=== PATIENT | male | born 1965 | race Caucasian/White ===

== ENCOUNTER → 2017-04-12 | Outpatient (CLI) | payer OTHER ==
--- NOTE | 2017-04-12 17:30 | XR ---
Left knee HISTORY: Pain, M 25.562 3 views of the left knee Bone mineralization and alignment are maintained. Mild joint space loss medial compartment is suspect ed. No evident effusion. impression: There may be mild osteoarthritis.
== END | disposition home or self-care (01) ==
LOC: RADXRMAIN 11:26
PROVIDERS: ATTEND Family Medicine
DX: M25.562 Pain in left knee (principal)

== ENCOUNTER → 2020-12-02 | Outpatient (CLI) | payer SELFPAY ==
[2020-12-02 12:53] LABS: HGB 10.4 gm/dL (13.0-17.5); Hypochromasia Marked; MCH 21.8 pg (25.0-35.0); MCHC 30.7 g/dL (31.0-37.0); MCV 71.1 fL (80.0-100.0); Microcytosis Moderate; Platelet Count 331 k/uL (150-450); RBC 4.78 m/uL (4.30-5.90); RDW 15.4 % (11.5-15.5); WBC 6.1 k/uL (3.8-10.6)
[2020-12-02 13:19] LABS: African American GFR (CKD) >90 (>60 ml/min/1.73 sqM); Anion Gap 6 mmol/L; Blood Urea Nitrogen 18 mg/dL (9-20); Carbon Dioxide 27 mmol/L (22-30); Chloride 103 mmol/L (98-107); Non-African American GFR(CKD) >90 (>60 ml/min/1.73 sqM); Potassium 4.5 mmol/L (3.5-5.1); Sodium 136 mmol/L (137-145)
== END | disposition home or self-care (01) ==
LOC: LABPAT 12:03
PROVIDERS: ATTEND Internal Medicine Cardiovascular Disease
DX: Z01.812 Encounter for preprocedural laboratory examination (principal); I20.9 Angina pectoris, unspecified
CPT/HCPCS: 36415; 80051; 82565; 84520; 85027

== ENCOUNTER → 2021-02-25 | Outpatient (CLI) | payer BC ==
[2021-02-25 19:04] LABS: HCT 40.7 % (39.6-50.0); HGB 11.8 g/dL (13.0-17.0); MCH 22.9 pg (27.0-32.0); Mean Platelet Volume 9.5 fL (9.5-12.2); Platelet Count 398 X 10*3/uL (140-440); RBC 5.15 X 10*6/uL (4.40-5.60); RDW 17.5 % (11.5-14.5); WBC 7.04 X 10*3/uL (4.50-10.00)
[2021-02-25 21:33] LABS: African American GFR (CKD) 99.1 (60.0-200.0); Albumin 4.3 g/dL (3.8-4.9); Albumin/Globulin Ratio 1.48 (1.60-3.17); BUN/Creat Ratio 17.5 Ratio (12.00-20.00); Blood Urea Nitrogen 17.5 mg/dL (9.0-27.0); Calcium 9.3 mg/dL (8.7-10.3); Globulin 2.9 g/dL (1.6-3.3); Non-African American GFR(CKD) 85.5 (60.0-200.0); Potassium 4.6 mmol/L (3.5-5.5); Total Bilirubin 0.3 mg/dL (0.30-1.20); Total Protein 7.2 g/dL (6.2-8.2)
== END | disposition home or self-care (01) ==
LOC: LABWHC1 12:45
PROVIDERS: ATTEND Surgery Plastic and Reconstructive Surgery
DX: K81.1 Chronic cholecystitis (principal)
CPT/HCPCS: 36415; 80053; 85027

== ENCOUNTER 2021-06-09 07:39 | Day surgery (SDC) | payer BC ==
[2021-06-04 14:06] VITALS: BMI 28.3
--- NOTE | 2021-06-09 07:38 | P.GSHP ---
History of Present Illness H&P Date: 06/09/21 CHIEF COMPLAINT: GERD and colon screen HISTORY OF PRESENT ILLNESS: The patient is a 55-year-old male who presents with gastroesophageal reflux disease and need for colon screen. Upper and lower endoscopy were offered for further evaluation and management. PAST MEDICAL HISTORY: Please see list. PAST SURGICAL HISTORY: Please see list. MEDICATIONS: Please see list. ALLERGIES: Please see list. SOCIAL HISTORY: No illicit drug use FAMILY HISTORY: No reports of Crohn disease or ulcerative colitis. REVIEW OF ORGAN SYSTEMS: CONSTITUTIONAL: No reports of fevers or chills. GI: Denies any blood in stools or constipation. PHYSICAL EXAM: VITAL SIGNS: Stable GENERAL: Well-developed pleasant in no acute distress. HEENT: No scleral icterus. Extraocular movements grossly intact. Moist buccal mucosa. NECK: Supple without lymphadenopathy. CHEST: Unlabored respirations. Equal bilateral excursions. CARDIOVASCULAR: Regular rate and rhythm. Distal 2+ pulses. ABDOMEN: Soft, nondistended. MUSCULOSKELETAL: No clubbing, cyanosis, or edema. ASSESSMENT: 1. Gastroesophageal reflux disease 2. Colon screen. PLAN: 1. Recommend proceeding with an upper and lower endoscopy Past Medical History Past Medical History: Coronary Artery Disease (CAD), Hyperlipidemia, Hypertension, Osteoarthritis (OA), Prostate Disorder Additional Past Medical History / Comment(s): Recent sinus infection, just finished 14 days of Levaquin. Seasonal allergies, CARPAL TUNNEL BILATERAL HANDS, IBS, anemia, sinus allergies/headache. History of Any Multi-Drug Resistant Organisms: None Reported Past Surgical History: Coronary Bypass/CABG, Heart Catheterization Additional Past Surgical History / Comment(s): 09/03/13-CABG X5. Past Anesthesia/Blood Transfusion Reactions: Family History of Problems w/ Anesthesia, Postoperative Nausea & Vomiting (PONV) Additional Past Anesthesia/Blood Transfusion Reaction / Comment(s): Family-PONV. Past Psychological History: No Psychological Hx Reported Smoking Status: Never smoker Past Alcohol Use History: Rare Past Drug Use History: None Reported - Past Family History Father Family Medical History: Cancer Mother Family Medical History: Cancer, CVA/TIA Sister(s) Family Medical History: Cancer Medications and Allergies Home Medications Medication Instructions Recorded Confirmed Type Aspirin EC [Ecotrin Low Dose] 162 mg PO DAILY #60 tablet. 09/06/13 06/04/21 Rx Loratadine-Pseudoeph 5-120 mg 1 tab PO BID PRN 04/01/21 06/04/21 History [Claritin-D 12 Hour] Metoprolol Succinate (ER) [Toprol 50 mg PO QAM 04/01/21 06/04/21 History Xl] Rosuvastatin Calcium [Crestor] 10 mg PO HS 04/01/21 06/04/21 History Ubidecarenone [Co Q-10] 300 mg PO DAILY 04/01/21 06/04/21 History Iron Tab 1 tab PO DAILY PRN 04/26/21 06/04/21 History Drixoral 1 spray NASAL DIRECTED PRN 06/04/21 06/04/21 History Ubidecarenone [Co Q-10] 100 mg PO HS 06/04/21 06/04/21 History Allergies Allergy/AdvReac Type Severity Reaction Status Date / Time niacin Allergy vertigo Verified 06/04/21 13:57 nitroglycerin Allergy passed out Verified 06/04/21 13:57 Penicillins Allergy Unknown Verified 06/04/21 13:57 Childhood erythromycin base AdvReac Nausea & Verified 06/04/21 13:57 [Erythromycin Base] Vomiting & Diarrhea isosorbide mononitrate AdvReac dropped b/p Verified 06/04/21 13:57 [From Imdur]
[~2021-06-09 07:39] MED LIST: LIDOCAINE 1% (10MG/ML) FOR IV START INTRADERMA PRN
[2021-06-09 08:05] VITALS: TEMP 97.3
[2021-06-09] MEDS: LACTATED RINGERS 1,000 ML IV SCH ×2 (08:08→09:40)
[2021-06-09] MEDS ORDERED: ONDANSETRON 4 MG/2 ML VIAL ONE (08:15)
[2021-06-09] MEDS ORDERED: LIDOCAINE 1% INJ 10MG/ML (20 ML MDV) ONE (08:17)
[2021-06-09] MEDS ORDERED: PROPOFOL 10 MG/ML 20 ML VIAL IV ONE (08:17)
--- NOTE | 2021-06-09 08:32 | P.PCN ---
Date of Procedure: 06/09/21 Description of Procedure: PREOPERATIVE DIAGNOSIS: Anemia Epigastric abdominal pain Gastroesophageal reflux disease POSTOPERATIVE DIAGNOSIS: Gastric ulcer, antrum, superficial without bleeding Multiple duodenal ulcers Duodenitis Gastritis OPERATION: Esophagogastroduodenoscopy with biopsies along antrum and duodenum SURGEON: Tiff Roland MD ANESTHESIA: MAC. INDICATIONS: The patient is a 55-year-old male who presents with abdominal pain including anemia. Benefits and risks of the procedure were described. Informed consent was obtained. DESCRIPTION: The patient was brought into the endoscopy suite and laid in the left lateral decubitus position. An Olympus gastroscope was passed along the posterior oropharynx down to the distal esophagus where the squamocolumnar junction was encountered at 42 cm from the incisors. The stomach was entered and no bile reflux was found. Additional findings are listed below. Biopsies with cold forceps were obtained of the antrum. The first through third portion of the duodenum was examined. Retroflexion of the scope confirmed Hill grade 2 lower esophageal valve. The squamocolumnar junction demonstrated LA grade B erosive esophagitis. The stomach was desufflated. The patient tolerated the procedure well. FINDINGS: Squamocolumnar junction 43 cm from the incisors. Diaphragmatic hiatus at 43 cm. Hill grade 2 lower esophageal valve. LA grade A erosive esophagitis. Active duodenitis with multiple punctate superficial duodenal ulcers involving first and second portion of duodenum Chronic gastritis with superficial gastric ulcer RECOMMENDATIONS: 1. Omeprazole 40 mg daily 4 weeks 2. Carafate 1 g twice a day 4 weeks.
[2021-06-09] MEDS ORDERED: IOPAMIDOL CONTRAST (ORAL USE) VIAL PO PRN (09:24)
--- NOTE | 2021-06-09 10:10 | P.PCN ---
Date of Procedure: 06/09/21 Description of Procedure: PREOPERATIVE DIAGNOSIS: Anemia Abdominal pain POSTOPERATIVE DIAGNOSIS: Anemia Large cecal mass Tubular adenoma hepatic flexure Sigmoid diverticulosis Internal and external hemorrhoids grade 3 OPERATION: Colonoscopy to the ileocecal valve and appendiceal orifice, cecum Colonoscopy with injection of Debbie ink, 4 mL Colonoscopy with hot snare polypectomy Colonoscopy with cold forceps biopsy SURGEON: Tiff Roland MD. ANESTHESIA: MAC. INDICATIONS: The patient is an 55-year-old male who presents with abdominal pain including anemia. Lower endoscopy was offered for assessment. Benefits and risks were described and informed consent was obtained. DESCRIPTION OF PROCEDURE: The patient had undergone Sutab prep. The patient had been brought into the operating room and laid in the left lateral decubitus position. After adequate intravenous sedation, the rectum was examined with 2% lidocaine jelly. The prostate was unremarkable. External hemorrhoids were encountered. The rectal tone was within normal limits. No lesions were palpated in the rectal vault. An Olympus colonoscope was advanced until the cecum, ileocecal valve and appendiceal orifice were viewed. The prep was fair. Sigmoid diverticulosis was encountered. Colonic polyps were found and removed. A large 70% circumferential nodular cecal mass was identified involving the ileocecal valve with cold forceps biopsies obtained including injection of Debbie ink 4 mL circumferentially just distal to the tumor. No evidence of focal colitis was found. Retroflexion of the scope demonstrated grade 3 internal hemorrhoids without active bleeding or inflammation. The colon was desufflated. The patient had tolerated the procedure well. Withdrawal time was over 6 minutes. FINDINGS: Aronchick preparation quality scale 3 (1-5) Internal hemorrhoids, grade 3 External hemorrhoids, grade 3. No arteriovenous malformations. Sigmoid diverticulosis Removal of 3 polyps: - Snare polypectomy at hepatic flexure, 6 mm tubulovillous adenoma polyp. - Snare polypectomy and ascending colon, 4 mm flat villous adenoma polyp. - Snare polypectomy 50 cm from the anal verge, 12 mm flat villous adenoma polyp. - Cold forceps biopsy at cecum/ileocecal valve, multiple biopsies of 70% circumferential nodular cecal mass involving the ileocecal valve Injection of Debbie ink 4 mL circumferentially just distal to the cecal tumor. No focal colitis. RECOMMENDATIONS: 1. Immediate CT abdomen and pelvis for cecal tumor/malignancy 2. CBC, CMP and CEA levels for cecal tumor/malignancy 3. Surgical resection advised as entire ileocecal valve cecum involved Plan - Discharge Summary Discharge Rx Participant: Yes New Discharge Prescriptions: New Omeprazole [PriLOSEC] 40 mg PO DAILY #30 cap Sucralfate [Carafate] 1 gm PO BID #60 tablet Continue Aspirin EC [Ecotrin Low Dose] 162 mg PO DAILY #60 tablet. Loratadine-Pseudoeph 5-120 mg [Claritin-D 12 Hour] 1 tab PO BID PRN PRN Reason: Allergy Symptoms Ubidecarenone [Co Q-10] 300 mg PO DAILY Metoprolol Succinate (ER) [Toprol XL] 50 mg PO QAM Rosuvastatin Calcium [Crestor] 10 mg PO HS Iron Tab 1 tab PO DAILY PRN PRN Reason: "When not feeling well." Drixoral 1 spray NASAL DIRECTED PRN PRN Reason: Allergies Ubidecarenone [Co Q-10] 100 mg PO HS Discharge Medication List Aspirin EC [Ecotrin Low Dose] 162 mg PO DAILY #60 tablet. 09/06/13 [Rx] Loratadine-Pseudoeph 5-120 mg [Claritin-D 12 Hour] 1 tab PO BID PRN 04/01/21 [History] Metoprolol Succinate (ER) [Toprol XL] 50 mg PO QAM 04/01/21 [History] Rosuvastatin Calcium [Crestor] 10 mg PO HS 04/01/21 [History] Ubidecarenone [Co Q-10] 300 mg PO DAILY 04/01/21 [History] Iron Tab 1 tab PO DAILY PRN 04/26/21 [History] Drixoral 1 spray NASAL DIRECTED PRN 06/04/21 [History] Ubidecarenone [Co Q-10] 100 mg PO HS 06/04/21 [History] Omeprazole [PriLOSEC] 40 mg PO DAILY #30 cap 06/09/21 [Rx] Sucralfate [Carafate] 1 gm PO BID #60 tablet 06/09/21 [Rx] Follow up Appointment(s)/Referral(s): Tiff Roland MD [STAFF PHYSICIAN] - 06/15/21 Patient Instructions/Handouts: Peptic Ulcer (DC), Gastritis (DC), Diet for Stomach Ulcers and Gastritis (GEN), Iron Rich Diet (ED), Colorectal Polyps (GEN), Duodenitis (DC) Activity/Diet/Wound Care/Special Instructions: AVOID NSAIDS Discharge Disposition: HOME SELF-CARE
[2021-06-09 10:24] LABS: Anisocytosis Slight; Basophils % (A) 0 %; Eosinophils # (A) 0.1 k/uL (0-0.7); Eosinophils % (A) 1 %; HCT 33.5 % (39.0-53.0); Hypochromasia Marked; Lymphocytes # (A) 0.9 k/uL (1.0-4.8); Lymphocytes % (A) 17 %; MCH 21.8 pg (25.0-35.0); MCV 72.7 fL (80.0-100.0); Mean Platelet Volume 6.4; Microcytosis Moderate; Monocytes # (A) 0.4 k/uL (0-1.0); Monocytes % (A) 8 %; Neutrophils # (A) 3.9 k/uL (1.3-7.7); Neutrophils % (A) 72 %; Platelet Count 289 k/uL (150-450); RDW 16.6 % (11.5-15.5); WBC 5.5 k/uL (3.8-10.6)
[2021-06-09 10:36] LABS: ALT 26 U/L (4-49); AST 32 U/L (17-59); African American GFR (CKD) >90 (>60 ml/min/1.73 sqM); Albumin 3.6 g/dL (3.5-5.0); Alkaline Phosphatase 86 U/L (38-126); Anion Gap 11 mmol/L; Blood Urea Nitrogen 20 mg/dL (9-20); Calcium 8.5 mg/dL (8.4-10.2); Carbon Dioxide 25 mmol/L (22-30); Chloride 100 mmol/L (98-107); Glucose 93 mg/dL (74-99); Non-African American GFR(CKD) >90 (>60 ml/min/1.73 sqM); Potassium 3.9 mmol/L (3.5-5.1); Sodium 136 mmol/L (137-145); Total Bilirubin 0.9 mg/dL (0.2-1.3); Total Protein 6.6 g/dL (6.3-8.2)
--- NOTE | 2021-06-09 12:21 | CT ---
EXAMINATION TYPE: CT abdomen pelvis w con DATE OF EXAM: 06/09/2021 COMPARISON: No previous CT scan. Ultrasound dated 04/06/2021 HISTORY: post colonoscopy, possible new ca dx, abdominal pain CT DLP: 946.9 mGycm Automated exposure control for dose reduction was used. TECHNIQUE: Helical acquisition of images was performed from the lung bases through the pelvis. CONTRAST: Performed with Oral Contrast and with IV Contrast, patient injected with 100 mL of Isovue 300. FINDINGS: LUNG BASES: No significant abnormality is appreciated. LIVER/GB: No definite hepatic focal lesion. Cholelithiasis with suspected thick gallbladder sludge. N o signs of acute cholecystitis. PANCREAS: No significant abnormality is seen. SPLEEN: No significant abnormality is seen. ADRENALS: No significant abnormality is seen. KIDNEYS: No significant abnormality is seen. FREE AIR: No free air is visualized. RETROPERITONEAL ADENOPATHY: None visualized REPRODUCTIVE ORGANS: Slightly prominent prostate. Unremarkable seminal vesicles. URINARY BLADDER: No significant abnormality is seen. PELVIC ADENOPATHY: No pathologically enlarged lymph nodes. OSSEOUS STRUCTURES: Sternotomy wire sutures. No aggressive bone lesion. BOWEL: Unremarkable nondistended stomach, duodenum and small bowel. Fatty infiltration of the rectal wall with diffuse mild wall thickening of the colon which could be related to chronic colitis. Circu mferential suspicious focal wall thickening of the ascending colon just superior to the ileocecal jackson ction measuring 3.6 x 5.2 cm, highly suspicious for colon cancer. Adjacent millimetric locoregional l ymph nodes are noted measuring up to 6 mm. No other gross colonic synchronous lesion identified. OTHER: Arterial atherosclerotic calcifications. No sizable ascites. Small fat-containing umbilical he rnia. IMPRESSION: Findings are highly suspicious for an inferior ascending colon cancer with prominent locoregional sub centimeter lymph nodes as described above. Recommend correlation with colonoscopy results and patholo gy results. No other gross synchronous lesion seen in the colon. Signs suggestive of chronic colitis. No obvious metastatic disease seen in the abdomen or the pelvis otherwise. Other incidental findings as describe d above.
[2021-06-09 13:09] VITALS: BP 143/78; PULSE 67; RESP 18
== END 2021-06-09 13:24 | disposition home or self-care (01) ==
LOC: ORWHC2ENDO 07:39
PROVIDERS: ATTEND Surgery Plastic and Reconstructive Surgery
DX: Z12.11 Encounter for screening for malignant neoplasm of colon (principal); K57.30 Diverticulosis of large intestine without perforation or abscess without bleeding; D12.3 Benign neoplasm of transverse colon; K64.4 Residual hemorrhoidal skin tags; K64.2 Third degree hemorrhoids; K29.50 Unspecified chronic gastritis without bleeding; K25.9 Gastric ulcer, unspecified as acute or chronic, without hemorrhage or perforation; K63.3 Ulcer of intestine; K29.80 Duodenitis without bleeding; I25.10 Atherosclerotic heart disease of native coronary artery without angina pectoris; E78.5 Hyperlipidemia, unspecified; I10 Essential (primary) hypertension; M19.90 Unspecified osteoarthritis, unspecified site; F41.9 Anxiety disorder, unspecified; N42.9 Disorder of prostate, unspecified; J30.2 Other seasonal allergic rhinitis; G56.03 Carpal tunnel syndrome, bilateral upper limbs; K58.9 Irritable bowel syndrome, unspecified; Z95.1 Presence of aortocoronary bypass graft; Z80.9 Family history of malignant neoplasm, unspecified; Z82.3 Family history of stroke; Z79.82 Long term (current) use of aspirin; Z79.899 Other long term (current) drug therapy; Z88.1 Allergy status to other antibiotic agents; Z88.0 Allergy status to penicillin; Z91.09 Other allergy status, other than to drugs and biological substances
CPT/HCPCS: 88305; 80053; 82378; 85025; 88342; 74177; 45380; 45385; 43239; 45381; J2405; J2001; J2704; Q9967

== ENCOUNTER 2021-07-16 11:50 | Inpatient (IN) | payer BC ==
[2021-08-17 14:09] VITALS: BMI 28.3
[2021-08-20] MEDS ORDERED: HEPARIN SODIUM,PORCINE/PF 5,000 UNIT/0.5 ML SYRINGE SQ PRN (05:00)
[2021-08-20] MEDS ORDERED: MIDAZOLAM 2 MG/2 ML VIAL IV PRN (06:08)
[2021-08-20] MEDS ORDERED: DEXAMETHASONE SOD PHOSPHATE 4 MG/ML 1 ML VIAL IV ONE (06:08)
[2021-08-20] MEDS ORDERED: SCOPOLAMINE 1 MG/72 HR PATCH TRANSDERM ONE (06:08)
[2021-08-20] MEDS ORDERED: ONDANSETRON 4 MG/2 ML VIAL IVP ONE (06:08)
[2021-08-20] MEDS ORDERED: Antibiotics per Pharmacy 1 EACH MISC MISCELLANE PRN (06:08)
[2021-08-20] MEDS: LACTATED RINGERS 1,000 ML IV SCH (06:36)
[2021-08-20 06:57] LABS: Anisocytosis Slight; Basophils # (A) 0.1 k/uL (0-0.2); Basophils % (A) 1 %; Eosinophils # (A) 0.1 k/uL (0-0.7); Eosinophils % (A) 1 %; HCT 42.8 % (39.0-53.0); HGB 13.1 gm/dL (13.0-17.5); Hypochromasia Slight; Lymphocytes # (A) 1.1 k/uL (1.0-4.8); Lymphocytes % (A) 16 %; MCH 25.2 pg (25.0-35.0); MCHC 30.5 g/dL (31.0-37.0); MCV 82.5 fL (80.0-100.0); Mean Platelet Volume 6.8; Microcytosis Slight; Monocytes # (A) 0.6 k/uL (0-1.0); Monocytes % (A) 9 %; Neutrophils # (A) 5.1 k/uL (1.3-7.7); Neutrophils % (A) 72 %; Platelet Count 296 k/uL (150-450); RBC 5.19 m/uL (4.30-5.90); RDW 17.7 % (11.5-15.5)
[2021-08-20] MEDS ORDERED: HYDROmorphone 0.5 MG/0.5 ML SYRINGE IVP PRN (07:00)
[2021-08-20] MEDS ORDERED: MELOXICAM 7.5 MG TAB PO PRN (07:00)
[2021-08-20] MEDS ORDERED: ACETAMINOPHEN TAB 500 MG TAB PO PRN (07:00)
[2021-08-20] MEDS ORDERED: ALVIMOPAN 12 MG CAPSULE PO PRN (07:00)
[2021-08-20] MEDS ORDERED: METOPROLOL TARTRATE 5 MG/5 ML VIAL IVP ONE ×2 (07:05→07:52)
[2021-08-20 07:09] LABS: ALT 29 U/L (4-49); AST 28 U/L (17-59); African American GFR (CKD) >90 (>60 ml/min/1.73 sqM); Albumin 4.3 g/dL (3.5-5.0); Alkaline Phosphatase 101 U/L (38-126); Anion Gap 12 mmol/L; Blood Urea Nitrogen 14 mg/dL (9-20); Calcium 8.8 mg/dL (8.4-10.2); Carbon Dioxide 28 mmol/L (22-30); Chloride 100 mmol/L (98-107); Glucose 96 mg/dL (74-99); Non-African American GFR(CKD) 88 (>60 ml/min/1.73 sqM); Potassium 3.6 mmol/L (3.5-5.1); Sodium 140 mmol/L (137-145); Total Bilirubin 0.4 mg/dL (0.2-1.3); Total Protein 7.5 g/dL (6.3-8.2)
--- NOTE | 2021-08-20 07:23 | P.GSHP ---
History of Present Illness H&P Date: 08/20/21 CHIEF COMPLAINT: Cecal mass HISTORY OF PRESENT ILLNESS: The patient is a 56-year-old male recently diagnosed with a large cecal mass 3 months ago. He underwent cardiac risk assessment. He underwent colonoscopy. He presents here for resection. PAST MEDICAL HISTORY: Please see list. PAST SURGICAL HISTORY: Please see list. MEDICATIONS: Please see list. ALLERGIES: Please see list. SOCIAL HISTORY: No illicit drug use FAMILY HISTORY: No reports of Crohn disease or ulcerative colitis. REVIEW OF ORGAN SYSTEMS: CONSTITUTIONAL: Denies any fever or chills. HEENT: Denies any trouble with vision or nosebleeds. No difficulty swallowing. LYMPHATIC: The patient denies any lumps and bumps around the neck. ENDOCRINE: Denies any thyroid disorders. Has blood sugar glucose intolerance. RESPIRATORY: Denies pneumonia. Denies any troubles with breathing or dyspnea on exertion. CARDIOVASCULAR: Denies any chest pain, palpitations, or recent heart attacks. GASTROINTESTINAL: History of blood in stools. GENITOURINARY: Has increased urinary frequency. MUSCULOSKELETAL: Has back pain, stiffness, joint arthritis. NEUROLOGIC: Denies any numbness or tingling along the distal extremities. No seizure disorders or headaches. PSYCHIATRIC: Denies depression or suidical ideation. HEMATOLOGIC: Denies any abnormal bleeding or bruising. PHYSICAL EXAM: VITAL SIGNS: Stable GENERAL: Well-developed pleasant in no acute distress. HEENT: No scleral icterus. Extraocular movements grossly intact. Moist buccal mucosa. NECK: Supple without lymphadenopathy. CHEST: Unlabored respirations. Equal bilateral excursions. CARDIOVASCULAR: Regular rate and rhythm. Distal 2+ pulses. ABDOMEN: Soft, nontender, nondistended. MUSCULOSKELETAL: No clubbing, cyanosis, or edema. NERUO: Regular 2-12 grossly intact. PSYCH: Alert and oriented to person place and time. ASSESSMENT: 1. Cecal mass. PLAN: 1. Benefits and risks of surgical intervention right hemicolectomy. Robotic- assisted approach was also described. 2. Enhanced colon recovery program. 3. DVT prophylaxis. 4. Antibiotic prophylaxis. Past Medical History Past Medical History: Coronary Artery Disease (CAD), Cancer, Hyperlipidemia, Hypertension, Osteoarthritis (OA), Prostate Disorder Additional Past Medical History / Comment(s): Seasonal allergies, CARPAL TUNNEL BILATERAL HANDS, IBS, anemia, sinus allergies/headache., COLON CANCER History of Any Multi-Drug Resistant Organisms: None Reported Past Surgical History: Coronary Bypass/CABG, Heart Catheterization Additional Past Surgical History / Comment(s): 09/03/13-CABG X5. COLONSCOPY Past Anesthesia/Blood Transfusion Reactions: Family History of Problems w/ Anesthesia, Postoperative Nausea & Vomiting (PONV) Additional Past Anesthesia/Blood Transfusion Reaction / Comment(s): Family-PONV. Smoking Status: Never smoker - Past Family History Father Family Medical History: Cancer Mother Family Medical History: Cancer, CVA/TIA Sister(s) Family Medical History: Cancer Medications and Allergies Home Medications Medication Instructions Recorded Confirmed Type Aspirin EC [Ecotrin Low Dose] 162 mg PO DAILY #60 tablet. 09/06/13 08/20/21 Rx Loratadine-Pseudoeph 5-120 mg 1 tab PO BID PRN 04/01/21 08/20/21 History [Claritin-D 12 Hour] Metoprolol Succinate (ER) [Toprol 50 mg PO QAM 04/01/21 08/20/21 History XL] Rosuvastatin Calcium [Crestor] 10 mg PO HS 04/01/21 08/20/21 History Ubidecarenone [Co Q-10] 100 mg PO DAILY 06/04/21 08/20/21 History Ubidecarenone [Co Q-10] 200 mg PO DAILY 08/17/21 08/20/21 History Allergies Allergy/AdvReac Type Severity Reaction Status Date / Time niacin Allergy vertigo Verified 08/20/21 06:41 nitroglycerin Allergy passed out Verified 08/20/21 06:41 Penicillins Allergy Unknown Verified 08/20/21 06:41 Childhood erythromycin base AdvReac Nausea & Verified 08/20/21 06:41 [Erythromycin Base] Vomiting & Diarrhea isosorbide mononitrate AdvReac dropped b/p Verified 08/20/21 06:41 [From Imdur] Surgical - Exam Vital Signs Temp Pulse Resp BP Pulse Ox 98.8 F 102 H 18 134/87 100 08/20/21 06:35 08/20/21 06:35 08/20/21 06:35 08/20/21 06:35 08/20/21 06:35 Results - Labs 08/20/21 06:45 08/20/21 06:45 Abnormal Lab Results - Last 24 Hours (Table) 08/20/21 Range/Units 06:45 MCHC 30.5 L (31.0-37.0) g/dL RDW 17.7 H (11.5-15.5) % Diabetes panel 08/20/21 Range/Units 06:45 Sodium 140 (137-145) mmol/L Potassium 3.6 (3.5-5.1) mmol/L Chloride 100 (98-107) mmol/L Carbon Dioxide 28 (22-30) mmol/L BUN 14 (9-20) mg/dL Creatinine 0.98 (0.66-1.25) mg/dL Glucose 96 (74-99) mg/dL Calcium 8.8 (8.4-10.2) mg/dL AST 28 (17-59) U/L ALT 29 (4-49) U/L Alkaline Phosphatase 101 (38-126) U/L Total Protein 7.5 (6.3-8.2) g/dL Albumin 4.3 (3.5-5.0) g/dL Calcium panel 08/20/21 Range/Units 06:45 Calcium 8.8 (8.4-10.2) mg/dL Albumin 4.3 (3.5-5.0) g/dL Pituitary panel 08/20/21 Range/Units 06:45 Sodium 140 (137-145) mmol/L Potassium 3.6 (3.5-5.1) mmol/L Chloride 100 (98-107) mmol/L Carbon Dioxide 28 (22-30) mmol/L BUN 14 (9-20) mg/dL Creatinine 0.98 (0.66-1.25) mg/dL Glucose 96 (74-99) mg/dL Calcium 8.8 (8.4-10.2) mg/dL Adrenal panel 08/20/21 Range/Units 06:45 Sodium 140 (137-145) mmol/L Potassium 3.6 (3.5-5.1) mmol/L Chloride 100 (98-107) mmol/L Carbon Dioxide 28 (22-30) mmol/L BUN 14 (9-20) mg/dL Creatinine 0.98 (0.66-1.25) mg/dL Glucose 96 (74-99) mg/dL Calcium 8.8 (8.4-10.2) mg/dL Total Bilirubin 0.4 (0.2-1.3) mg/dL AST 28 (17-59) U/L ALT 29 (4-49) U/L Alkaline Phosphatase 101 (38-126) U/L Total Protein 7.5 (6.3-8.2) g/dL Albumin 4.3 (3.5-5.0) g/dL
[2021-08-20] MEDS ORDERED: BUPIVACAINE (PF) 0.25% 30 ML VIAL SQ ONE ×2 (07:47→08:31)
[2021-08-20] MEDS ORDERED: ROCURONIUM 10 MG/ML (5 ML VIAL) IV ONE (07:52)
[2021-08-20] MEDS ORDERED: NEOSTIGMINE 1 MG/ML 10 ML VIAL ONE (07:52)
[2021-08-20] MEDS ORDERED: MIDAZOLAM 2 MG/2 ML VIAL ONE (07:52)
[2021-08-20] MEDS ORDERED: fentaNYL (PF) 50 MCG/ML 2 ML AMP ONE (07:52)
[2021-08-20] MEDS ORDERED: LIDOCAINE 2% INJ 20 MG/ML (2 ML VIAL) ONE (07:52)
[2021-08-20] MEDS ORDERED: PROPOFOL 10 MG/ML 20 ML VIAL IV ONE (07:52)
[2021-08-20] MEDS ORDERED: HYDROmorphone (PF) 1 MG/ML ONE (07:52)
[2021-08-20] MEDS ORDERED: KETOROLAC 15 MG/ML 1 ML VIAL ONE (07:52)
[2021-08-20] MEDS ORDERED: GLYCOPYRROLATE 0.2 MG/ML 2 ML VIAL ONE (07:52)
[2021-08-20] MEDS ORDERED: ROPIVACAINE 5 MG/ML 30 ML VIAL ONE (07:52)
[2021-08-20] MEDS ORDERED: DEXAMETHASONE SOD PHOSPHATE 4 MG/ML 1 ML VIAL ONE (07:52)
--- NOTE | 2021-08-20 07:54 | P.ANPRN ---
Procedure Note - Anesthesia - Nerve Block Performed Bilateral Erector Spinae Single Time Out Performed: Yes Date of Procedure: 08/20/21 Procedure Start Time: : Procedure Stop Time: : Location of Patient: PreOp Indication: Acute Post-Operative Pain, Requested by Surgeon Sedation Type: Sedate with meaningful contact maintained Preparation: Sterile Prep, Sterile Dressing Position: Prone Catheter: None Needle Types: Pajunk Needle Gauge: 20 Ultrasound used to visualize needle placement: Yes Ultrasound used to observe medication spread: Yes Injectate: Other (see comment) (Ropivacain 0.25% 30 ml per side + decadron 4 mg per side) Blood Aspirated: No Pain Paresthesia on Injection Noted: No Resistance on Injection: Normal Image Stored and Saved: Yes Events: Uneventful and Well Tolerated
[2021-08-20] MEDS: metroNIDAZOLE-NS PMX 500 MG in SALINE 1 100ML.BAG IVPB PRN ×2 (08:00→08:10)
[2021-08-20] MEDS ORDERED: LACTATED RINGERS 1,000 ML IV ONE ×4 (08:58→13:05)
[2021-08-20] MEDS ORDERED: BENZOCAINE/MENTHOL LOZENG 1 EACH LOZENGE MUCOUS MEM PRN (13:29)
[2021-08-20] MEDS ORDERED: METOCLOPRAMIDE 5 MG/ML 2 ML VIAL IVP PRN (13:29)
--- NOTE | 2021-08-20 13:53 | P.OP ---
Date of Procedure: 08/20/21 Description of Procedure: SURGEON: MARCELINO CALIXTO MD Preoperative Diagnosis: 1. Cecal tumor 2. Coronary artery disease status post CABG 5 3. Hypertensive heart disease 4. Hyperlipidemia 5. Anemia 6. Postoperative nausea and vomiting Postoperative Diagnosis: 1. Ascending colon cancer 2. Coronary artery disease status post CABG 5 3. Hypertensive heart disease 4. Hyperlipidemia 5. Anemia 6. Postoperative nausea and vomiting Procedure(s) Performed: 1. Robot-assisted daVinci Xi laparoscopic extended right hemicolectomy 2. Robot-assisted daVinci Xi laparoscopic partial omentectomy Anesthesia: GETA, local, regional block Estimated Blood Loss (ml): 50 Condition: stable SPECIMENS REMOVED: terminal ileum and extended right colon en bloc, partial omentectomy COMPLICATIONS: None. Disposition: floor Operative Findings: 1. Tattoo identified along the mid ascending colon. 2. More than 6 cm border obtained from tattoo dye for resection 3. No peritoneal metastases identified 4. Extended right hemicolectomy to mid transverse colon 5. Tumor adherent to the retroperitoneum ascending colon INDICATIONS: The patient is a 56-year-old male who presents with cecal adenoma unresectable by colonoscopy. Surgical intervention with colon resection was described in detail. Benefits and risks, including infection, open surgery possibility for additional surgery was discussed at length. Informed consent was obtained. All questions of the patient and family were answered. DESCRIPTION: Earlier the patient had undergone a bowel prep using the enhanced colon recovery program. The patient was transferred to the operating room and placed in supine position. After general anesthetic, a velazquez catheter was placed. The abdomen was then prepped and draped in standard sterile fashion as Ioban was placed along the abdomen to minimize any contamination of skin floor. After a timeout protocol was performed, attention was then brought to the left upper quadrant whereby a 0 degree 5 mm laparoscopic trocar entry was performed. The abdominal cavity was entered and insufflated to 15 mmHg pressure, which was tolerated well. Diagnostic laparoscopy demonstrated no injury to bowel, viscera or mesentery. The liver was remarkable for metastatic disease. Next trochars were placed along the left lateral abdomen. An robotic 8-mm trocar to the left lower abdomen. A 8 mm port was placed along the left lower quadrant. Another 12-mm port along the left upper quadrant. Ports were placed 8 cm apart from each other including 15-20 cm away from the target anatomy of the right pelvis. The 5-mm port was exchanged for a 12 mm robotic port. The patient was then placed in right side up 7 and reverse Trendelenburg in 7. The robotic da Dawson XI system was primed and docked from the right side of the patient. Using atraumatic graspers and vessel sealer, the robotic system was docked and primed as described. Instruments were interchanged by the promotional advertising assistant including scissors, needle set key driver, robotic stapler and vessel sealer. Next, attention was brought to identify the cecum. A stay suture using 0 silk was placed along the anterior serosa of the along the terminal ileum. The terminal ileum and ascending colon mesentery was mobilized using a vessel sealer whereby the colon was marked and tagged. Tattoo was identified along the mid ascending colon. The colon was prepared for resection along the mid transverse colon including for resection along the terminal ileum. Using robot stapler 60 mm white load, the distal ileum was divided 8 centimeters proximal to the ileocecal valve. The mesentery of the ascending colon was mobilized towards the midline using a vessel sealer. Dense adherence and redundancy of the ascending colon to the retroperitoneum was identified requiring extensive dissection. The right colon was mobilized to the mid transverse colon and prepared for resection. Redundant omentum was resected using vessel sealer at the mid transverse colon proximally to the hepatic flexure for partial omentectomy. The colon was divided using 60 mm blue loads. The rest of the colon mesentery was mobilized using vessel sealer including using blunt dissection. The ascending colon was mobilized from proximal to distal with the meeting point of the hepatic flexure. The vascular pedicle of the ileocolic artery was controlled using vessel sealer. The mid transverse colon and distal ileum was brought in a side to side antiperistaltic anastomotic fashion after placing interrupted sutures along the proposed zoë-lumen using 3-0 silk. A colotomy and enterotomy was prepared along both limbs along the antimesenteric border. Next, 60 mm blue stapler loads were fired to create the zoë-lumen. The zoë-lumen was reapproximated using 3-0 silk followed by 60 mm blue load for closure of the enterostomy. All needles were removed from the abdominal cavity. The robot was undocked. I re-scrubbed into the case. Via the 12 mm port of the left upper quadrant, the right colon was removed after widening the skin incision to 5-cm using 15-mm Endo Catch bag and small Christiano wound protector. All sponges were removed from the abdominal cavity. The fascial defect was oversewn using 0 Vicryl and Gil Leos. Next all pneumoperitoneum was evacuated from the abdominal cavity. The 8-mm trocar sites were reapproximated using 4-0 Monocryl in an interrupted subcuticular fashion. Local anesthetic was infiltrated to all wounds for postop analgesia. All incisions were also cleansed with diluted hydrogen peroxide. Liquid glue was applied to the rest of the skin incisions. The patient had tolerated the procedure well. The patient was extubated successfully. Intraoperative photos were reviewed with the patient's family who were overall pleased with the level of care. The patient was transferred to the postanesthesia care unit in stable condition.
[2021-08-20 14:39] LABS: Glucose,Whole Blood 119 mg/dL (75-99)
[2021-08-20] MEDS ORDERED: KETOROLAC 15 MG/ML 1 ML VIAL IVP ONE (16:19)
[2021-08-20] MEDS: 0.9% NACL WITH KCL 20 MEQ/L 1,000 ML IV SCH (16:38)
[2021-08-20] MEDS: ALVIMOPAN 12 MG CAPSULE PO SCH (20:45)
[2021-08-20] MEDS: HEPARIN SODIUM,PORCINE/PF 5,000 UNIT/0.5 ML SYRINGE SQ SCH (20:45)
[2021-08-20] MEDS: HYDROmorphone 1 MG/ML 1 ML SYRINGE IVP PRN (21:34)
[2021-08-20] MEDS: LORATADINE-PSEUDOEPH 5-120 MG 1 EACH TAB.ER.12H PO PRN (21:35)
[2021-08-21] MEDS: 0.9% NACL WITH KCL 20 MEQ/L 1,000 ML IV SCH ×4 (00:10→22:31)
[2021-08-21] MEDS: HYDROmorphone 1 MG/ML 1 ML SYRINGE IVP PRN ×3 (04:52→11:17)
[2021-08-21] MEDS: LACTATED RINGERS 1,000 ML IV SCH (07:27)
[2021-08-21] MEDS: ALVIMOPAN 12 MG CAPSULE PO SCH ×2 (08:09→20:39)
[2021-08-21] MEDS: LORATADINE-PSEUDOEPH 5-120 MG 1 EACH TAB.ER.12H PO PRN ×2 (08:09→20:39)
[2021-08-21] MEDS: METOPROLOL SUCCINATE (ER) 50 MG TAB.ER.24H PO SCH (08:09)
[2021-08-21] MEDS: HEPARIN SODIUM,PORCINE/PF 5,000 UNIT/0.5 ML SYRINGE SQ SCH ×2 (08:10→20:39)
[2021-08-21 08:42] LABS: Basophils # (A) 0.01 X 10*3/uL (0.00-0.10); Basophils % (A) 0.1 %; Eosinophils # (A) 0 X 10*3/uL (0.04-0.35); Eosinophils % (A) 0 %; HCT 35.9 % (39.6-50.0); HGB 10.6 g/dL (13.0-17.0); Immature Grans, Automated 0.4 %; Lymphocytes # (A) 1.12 X 10*3/uL (0.90-5.00); Lymphocytes % (A) 10.9 %; MCH 24.7 pg (27.0-32.0); MCHC 29.5 g/dL (32.0-37.0); MCV 83.5 fL (80.0-97.0); Mean Platelet Volume 9.6 fL (9.5-12.2); Monocytes # (A) 0.89 X 10*3/uL (0.20-1.00); Monocytes % (A) 8.7 %; NRBC Per 100 WBC 0 /100 WBCS (0.0-0.0); Neutrophils # (A) 8.17 X 10*3/uL (1.80-7.70); Neutrophils % (A) 79.9 %; Platelet Count 265 X 10*3/uL (140-440); RDW 18.6 % (11.5-14.5); WBC 10.23 X 10*3/uL (4.50-10.00)
[2021-08-21 08:54] LABS: African American GFR (CKD) 98.5 (60.0-200.0); Anion Gap 8.4 mmol/L (10.00-18.00); Calcium 8.1 mg/dL (8.7-10.3); Carbon Dioxide 23.6 mmol/L (20.0-27.5); Non-African American GFR(CKD) 84.9 (60.0-200.0); Potassium 4.4 mmol/L (3.5-5.5)
--- NOTE | 2021-08-21 11:01 | P.PN ---
Subjective Progress Note Date: 08/21/21 Principal diagnosis: Right colectomy 56-year-old male doing well after laparoscopic right colectomy yesterday. He has been ambulating in the hallways. He was nauseous yesterday but that has resolved. No flatus or bowel movement yet. He is afebrile with a T-max of 99.1. Hemoglobin 10.6 today. Objective - Vital Signs Vital signs: Vital Signs Temp 99.1 F 08/21/21 08:14 Pulse 89 08/21/21 08:14 Resp 16 08/21/21 08:14 BP 121/57 08/21/21 08:14 Pulse Ox 91 L 08/21/21 08:14 FiO2 Intake & Output 08/20/21 08/21/21 08/21/21 18:59 06:59 18:59 Intake Total 4500 Output Total 400 600 Balance 4100 -600 Weight 88.9 kg Intake: IV 4500 Output: Urine 350 600 Estimated Blood Loss 50 Other: Voiding Method Indwelling Catheter Indwelling Catheter # Bowel Movements 0 - Exam Abdomen: Soft, mild distention, mild tenderness at incision sites, incisions clean and dry - Labs CBC & Chem 7: 08/21/21 05:23 08/21/21 05:23 Labs: Abnormal Lab Results - Last 24 Hours (Table) 08/20/21 08/21/21 08/21/21 Range/Units 14:38 05:23 05:23 WBC 10.23 H (4.50-10.00) X 10*3/uL RBC 4.30 L (4.40-5.60) X 10*6/uL Hgb 10.6 L (13.0-17.0) g/dL Hct 35.9 L (39.6-50.0) % MCH 24.7 L (27.0-32.0) pg MCHC 29.5 L (32.0-37.0) g/dL RDW 18.6 H (11.5-14.5) % Neutrophils # 8.17 H (1.80-7.70) X 10*3/uL Eosinophils # 0 L (0.04-0.35) X 10*3/uL Anion Gap 8.40 L (10.00-18.00) mmol/L POC Glucose (mg/dL) 119 H (75-99) mg/dL Calcium 8.1 L (8.7-10.3) mg/dL Assessment and Plan (1) Adenoma of cecum Narrative/Plan: 56-year-old male doing fairly well after recent laparoscopic right colectomy yesterday. Continue clear liquids for today but will advance to full liquids tomorrow. Recheck CBC tomorrow. Ambulate. Current Visit: Yes Status: Acute Code(s): D12.0 - BENIGN NEOPLASM OF CECUM SNOMED Code(s): 92007631
[2021-08-21] MEDS ORDERED: ACETAMINOPHEN TAB 325 MG TAB PO PRN (14:28)
[2021-08-21] MEDS: HYDROcodone/APAP 7.5-325MG 1 EACH TAB PO PRN ×2 (14:39→20:45)
[2021-08-21] MEDS: KETOROLAC 15 MG/ML 1 ML VIAL IVP SCH ×2 (14:39→18:06)
[2021-08-22] MEDS: KETOROLAC 15 MG/ML 1 ML VIAL IVP SCH ×5 (01:29→23:10)
[2021-08-22] MEDS: 0.9% NACL WITH KCL 20 MEQ/L 1,000 ML IV SCH ×2 (05:44→17:02)
[2021-08-22] MEDS: ONDANSETRON 4 MG/2 ML VIAL IVP PRN ×2 (05:44→17:01)
[2021-08-22] MEDS: LACTATED RINGERS 1,000 ML IV SCH (06:18)
[2021-08-22] MEDS: ALVIMOPAN 12 MG CAPSULE PO SCH (07:43)
[2021-08-22] MEDS: HEPARIN SODIUM,PORCINE/PF 5,000 UNIT/0.5 ML SYRINGE SQ SCH ×2 (09:22→21:38)
[2021-08-22] MEDS: METOPROLOL SUCCINATE (ER) 50 MG TAB.ER.24H PO SCH (09:25)
[2021-08-22] MEDS: HYDROcodone/APAP 7.5-325MG 1 EACH TAB PO PRN ×2 (09:25→17:02)
[2021-08-22 11:36] LABS: Basophils # (A) 0.01 X 10*3/uL (0.00-0.10); Basophils % (A) 0.1 %; Eosinophils # (A) 0.02 X 10*3/uL (0.04-0.35); Eosinophils % (A) 0.3 %; HGB 10.9 g/dL (13.0-17.0); Immature Grans, Automated 0.3 %; Lymphocytes # (A) 0.69 X 10*3/uL (0.90-5.00); Lymphocytes % (A) 8.7 %; MCHC 30.3 g/dL (32.0-37.0); MCV 82.6 fL (80.0-97.0); Mean Platelet Volume 9.3 fL (9.5-12.2); Monocytes # (A) 0.74 X 10*3/uL (0.20-1.00); Monocytes % (A) 9.3 %; NRBC Per 100 WBC 0 /100 WBCS (0.0-0.0); Neutrophils # (A) 6.48 X 10*3/uL (1.80-7.70); Neutrophils % (A) 81.3 %; Platelet Count 234 X 10*3/uL (140-440); RBC 4.36 X 10*6/uL (4.40-5.60); RDW 18.1 % (11.5-14.5); WBC 7.96 X 10*3/uL (4.50-10.00)
--- NOTE | 2021-08-22 11:38 | P.PN ---
Subjective Progress Note Date: 08/22/21 Principal diagnosis: Right colectomy Patient doing well today. He did have loose stools this morning. Pain is improved. He did have complaints of swelling in his uvula. No fevers. Tolerating diet thus far. Hemoglobin stable, white blood cell count normal. Objective - Vital Signs Vital signs: Vital Signs Temp 97.7 F 08/22/21 07:37 Pulse 66 08/22/21 07:37 Resp 18 08/22/21 07:37 BP 141/68 08/22/21 07:37 Pulse Ox 96 08/22/21 07:37 FiO2 Intake & Output 08/21/21 08/22/21 08/22/21 18:59 06:59 18:59 Intake Total 540 Output Total 1800 3100 Balance -1800 -2560 Intake: Oral 540 Output: Urine 1800 3100 Other: Voiding Method Indwelling Catheter Indwelling Catheter Indwelling Catheter # Voids 1 - Exam Abdomen: Soft, mild tenderness at incision sites, nondistended - Labs CBC & Chem 7: 08/22/21 07:32 08/21/21 05:23 Labs: Abnormal Lab Results - Last 24 Hours (Table) 08/22/21 Range/Units 07:32 RBC 4.36 L (4.40-5.60) X 10*6/uL Hgb 10.9 L (13.0-17.0) g/dL Hct 36.0 L (39.6-50.0) % MCH 25.0 L (27.0-32.0) pg MCHC 30.3 L (32.0-37.0) g/dL RDW 18.1 H (11.5-14.5) % MPV 9.3 L (9.5-12.2) fL Lymphocytes # 0.69 L (0.90-5.00) X 10*3/uL Eosinophils # 0.02 L (0.04-0.35) X 10*3/uL Assessment and Plan (1) Adenoma of cecum Narrative/Plan: Patient doing well at this time. Continue advancing diet as tolerated. Ambulate. May shower today. Decrease IV fluid rate. Anticipate discharge tomorrow. Current Visit: Yes Status: Acute Code(s): D12.0 - BENIGN NEOPLASM OF CECUM SNOMED Code(s): 89233141
[2021-08-22] MEDS: LORATADINE-PSEUDOEPH 5-120 MG 1 EACH TAB.ER.12H PO PRN (22:16)
[2021-08-23 03:20] VITALS: RESP 18
[2021-08-23] MEDS: KETOROLAC 15 MG/ML 1 ML VIAL IVP SCH (05:36)
[2021-08-23] MEDS: ONDANSETRON 4 MG/2 ML VIAL IVP PRN (05:37)
[2021-08-23] MEDS: LACTATED RINGERS 1,000 ML IV SCH (06:12)
[2021-08-23] MEDS: HEPARIN SODIUM,PORCINE/PF 5,000 UNIT/0.5 ML SYRINGE SQ SCH ×2 (07:33→07:35)
[2021-08-23] MEDS: METOPROLOL SUCCINATE (ER) 50 MG TAB.ER.24H PO SCH (07:34)
[2021-08-23 07:42] LABS: Glucose,Whole Blood 78 mg/dL (75-99)
[2021-08-23] MEDS: HYDROcodone/APAP 7.5-325MG 1 EACH TAB PO PRN ×2 (09:05→14:08)
--- NOTE | 2021-08-23 13:54 | P.DS ---
Providers Date of admission: 08/20/21 06:13 Expected date of discharge: 08/23/21 Attending physician: Tiff Roland Primary care physician: Far[facility] Course: Discharge diagnosis 1. Ascending colon tumor status post extended right hemicolectomy and partial omentectomy Hospital course This is a 56-year-old male who was diagnosed with a large cecal mass 3 months ago on colonoscopy. Patient is status post extended right hemicolectomy and partial omentectomy. Patient is tolerating diet. He is having bowel movements. His pain is controlled. He is afebrile. He is up and ambulating. He is stable for discharge. Physician Edge Trimmer note has been reviewed by physician. Signing provider agrees with the documented findings, assessment, and plan of care. Postoperative Diagnosis: 1. Ascending colon cancer 2. Coronary artery disease status post CABG 5 3. Hypertensive heart disease 4. Hyperlipidemia 5. Anemia 6. Postoperative nausea and vomiting As above. Patient was started on a low fiber diet. Reports tolerating diet having bowel movements and passing flatus. Discharge instructions: Colectomy diet low fiber diet reviewed. All questions were addressed. Patient was stable for discharge. Procedures: Procedure(s) Performed: 1. Robot-assisted daVinci Xi laparoscopic extended right hemicolectomy 2. Robot-assisted daVinci Xi laparoscopic partial omentectomy Anesthesia: GETA, local, regional block Estimated Blood Loss (ml): 50 Condition: stable SPECIMENS REMOVED: terminal ileum and extended right colon en bloc, partial omentectomy COMPLICATIONS: None. Disposition: floor Operative Findings: 1. Tattoo identified along the mid ascending colon. 2. More than 6 cm border obtained from tattoo dye for resection 3. No peritoneal metastases identified 4. Extended right hemicolectomy to mid transverse colon 5. Tumor adherent to the retroperitoneum ascending colon Patient Condition at Discharge: Stable Plan - Discharge Summary Discharge Rx Participant: Yes New Discharge Prescriptions: New Simethicone [Gas-X] 125 mg PO AC-TID PRN #20 capsule PRN Reason: Pain Ibuprofen [Motrin] 600 mg PO Q8HR PRN #30 tab PRN Reason: Pain Simethicone [Gas-X] 125 mg PO AC-TID PRN #30 capsule PRN Reason: Pain Omeprazole [PriLOSEC] 40 mg PO DAILY #14 cap Acetaminophen Tab [Tylenol Tab] 1,000 mg PO Q6HR PRN #30 tablet PRN Reason: Pain Ondansetron Odt [Zofran ODT] 4 mg PO Q8HR PRN #20 tab PRN Reason: Nausea And Vomiting Continue Aspirin EC [Ecotrin Low Dose] 162 mg PO DAILY #60 tablet. Loratadine-Pseudoeph 5-120 mg [Claritin-D 12 Hour] 1 tab PO BID PRN PRN Reason: Allergy Symptoms Metoprolol Succinate (ER) [Toprol XL] 50 mg PO QAM Rosuvastatin Calcium [Crestor] 10 mg PO HS Ubidecarenone [Co Q-10] 100 mg PO DAILY Ubidecarenone [Co Q-10] 200 mg PO DAILY Discharge Medication List Aspirin EC [Ecotrin Low Dose] 162 mg PO DAILY #60 tablet. 09/06/13 [Rx] Loratadine-Pseudoeph 5-120 mg [Claritin-D 12 Hour] 1 tab PO BID PRN 04/01/21 [History] Metoprolol Succinate (ER) [Toprol XL] 50 mg PO QAM 04/01/21 [History] Rosuvastatin Calcium [Crestor] 10 mg PO HS 04/01/21 [History] Ubidecarenone [Co Q-10] 100 mg PO DAILY 06/04/21 [History] Ubidecarenone [Co Q-10] 200 mg PO DAILY 08/17/21 [History] Acetaminophen Tab [Tylenol Tab] 1,000 mg PO Q6HR PRN #30 tablet 08/23/21 [Rx] Ibuprofen [Motrin] 600 mg PO Q8HR PRN #30 tab 08/23/21 [Rx] Simethicone [Gas-X] 125 mg PO AC-TID PRN #20 capsule 08/23/21 [Rx] Omeprazole [PriLOSEC] 40 mg PO DAILY #14 cap 08/24/21 [Rx] Ondansetron Odt [Zofran ODT] 4 mg PO Q8HR PRN #20 tab 08/24/21 [Rx] Simethicone [Gas-X] 125 mg PO AC-TID PRN #30 capsule 08/24/21 [Rx] Follow up Appointment(s)/Referral(s): Tiff Roland MD [STAFF PHYSICIAN] - 08/31/21 (Telehealth. Please call the office to verify time) Patient Instructions/Handouts: Colectomy Diet (DC), Laparoscopic Bowel Resection (GEN), Colectomy (DC) Activity/Diet/Wound Care/Special Instructions: Wear abdominal binder at all times for comfort. Please notify your pain specialist for narcotic pain meds. No lifting over 4 pounds in 4 weeks until September 19. July shower. No bath tub soaks for two weeks until September 03 Avoid steak, tough meats and seeds such as raspberry seeds. No driving while on narcotics. Use Tylenol and ibuprofen scheduled for the next 24-48 hours for best pain relief. Use ice along incisions for today to prevent swelling. Discharge Disposition: HOME SELF-CARE
[2021-08-23 14:15] VITALS: BP 139/86; PULSE 86; TEMP 98.7
--- NOTE | 2021-08-26 12:58 | P.PN ---
Progress Note - Text Progress Note Date: 08/26/21 Called patient. He reports abdominal gas bloat, persistent. Recommend return to the ER for additional diagnostic studies.
== END 2021-08-23 15:12 | disposition home or self-care (01) | DRG 331 ==
LOC: 2ORMAIN 08-20 06:13 → 4SSUR 08-20 13:29
PROVIDERS: ADMIT Surgery Plastic and Reconstructive Surgery; ATTEND Surgery Plastic and Reconstructive Surgery
PROC: 0DBU0ZZ Excision of Omentum, Open Approach (ICD-10-PCS; 2021-08-20)
PROC: 8E0W0CZ Robotic Assisted Procedure of Trunk Region, Open Approach (ICD-10-PCS; 2021-08-20)
PROC: 0DTF0ZZ Resection of Right Large Intestine, Open Approach (ICD-10-PCS; principal; 2021-08-20 07:30)
DX: D12.0 Benign neoplasm of cecum (principal); D64.9 Anemia, unspecified; I10 Essential (primary) hypertension; I25.10 Atherosclerotic heart disease of native coronary artery without angina pectoris; E78.5 Hyperlipidemia, unspecified; K58.9 Irritable bowel syndrome, unspecified; J30.2 Other seasonal allergic rhinitis; M19.90 Unspecified osteoarthritis, unspecified site; R11.2 Nausea with vomiting, unspecified; Z79.82 Long term (current) use of aspirin; Z82.3 Family history of stroke; Z85.038 Personal history of other malignant neoplasm of large intestine; Z95.1 Presence of aortocoronary bypass graft; Z88.8 Allergy status to other drugs, medicaments and biological substances; Z88.0 Allergy status to penicillin; Z88.1 Allergy status to other antibiotic agents; Z79.899 Other long term (current) drug therapy
CPT/HCPCS: 64999; 80048; 80053; 85025; 86850; 86900; 86901; 88309

== ENCOUNTER → 2021-08-13 | Outpatient (CLI) | payer BC ==
[2021-08-13 13:56] LABS: Anisocytosis Slight; HCT 43.6 % (39.0-53.0); Hypochromasia Moderate; MCH 25.4 pg (25.0-35.0); MCHC 30.3 g/dL (31.0-37.0); Mean Platelet Volume 6.8; Microcytosis Slight; Platelet Count 338 k/uL (150-450); RDW 18.8 % (11.5-15.5); WBC 6.5 k/uL (3.8-10.6)
[2021-08-13 14:06] LABS: HGB 13.2 gm/dL (13.0-17.5); MCV 83.9 fL (80.0-100.0)
[2021-08-13 19:16] LABS: African American GFR (CKD) 99.1 (60.0-200.0); Albumin 4.3 g/dL (3.8-4.9); Albumin/Globulin Ratio 1.43 (1.60-3.17); Anion Gap 9.4 mmol/L (10.00-18.00); BUN/Creat Ratio 16.6 Ratio (12.00-20.00); Blood Urea Nitrogen 16.6 mg/dL (9.0-27.0); Calcium 9.4 mg/dL (8.7-10.3); Carbon Dioxide 27.6 mmol/L (20.0-27.5); Non-African American GFR(CKD) 85.5 (60.0-200.0); Potassium 4.2 mmol/L (3.5-5.5); Total Bilirubin 0.2 mg/dL (0.30-1.20); Total Protein 7.3 g/dL (6.2-8.2)
== END | disposition home or self-care (01) ==
LOC: LABPAT 13:17
PROVIDERS: ATTEND Surgery Plastic and Reconstructive Surgery
DX: Z01.810 Encounter for preprocedural cardiovascular examination (principal)
CPT/HCPCS: 80053; 85027

== ENCOUNTER 2021-08-26 13:53 | Inpatient (IN) | payer BC ==
--- NOTE | 2021-08-26 15:45 | ED ---
Abdominal Pain HPI - General Chief Complaint: Abdominal Pain Stated Complaint: Procedure done 08/20 Complications Time Seen by Provider: 08/26/21 15:40 Source: patient Mode of arrival: ambulatory Limitations: no limitations - History of Present Illness Initial Comments: 56-year-old male with recently diagnosed colon cancer presents emergency Department with abdominal pain. Patient was hospitalized on August 20 and had removal of a cecal tumor. He had an extended right hemicolectomy and laparoscopic partial omentectomy. He has not been taking any pain medications at home as his pain has been well managed. He is on a clear diet. States that yesterday he began having significant abdominal bloating which is new and different for him. He attempted to pass gas however was unsuccessful. States he has been having loose bowel movements. Patient has no issues with urination. Yesterday his temp was 99.1 however has not had any recorded fevers. He has been taking Gas-X without any improvement in his symptoms. Reports that his symptoms finally resolved on their own and are less severe today. He called Dr. Rao recommended that he come into the emergency room for evaluation. No other alleviating, precipitating or modifying factors - Related Data Home Medications Medication Instructions Recorded Confirmed Loratadine-Pseudoeph 5-120 mg 1 tab PO BID PRN 04/01/21 08/26/21 [Claritin-D 12 Hour] Metoprolol Succinate (ER) [Toprol 50 mg PO DAILY 04/01/21 08/26/21 XL] Rosuvastatin Calcium [Crestor] 10 mg PO HS 04/01/21 08/26/21 Ubidecarenone [Co Q-10] 200 mg PO DAILY 08/17/21 08/26/21 Previous Rx's Medication Instructions Recorded Aspirin EC [Ecotrin Low Dose] 162 mg PO DAILY #60 tablet. 09/06/13 Acetaminophen Tab [Tylenol Tab] 1,000 mg PO Q6HR PRN #30 tablet 08/23/21 Ibuprofen [Motrin] 600 mg PO Q8HR PRN #30 tab 08/23/21 Simethicone [Gas-X] 125 mg PO AC-TID PRN #20 capsule 08/23/21 Omeprazole [PriLOSEC] 40 mg PO DAILY #14 cap 08/24/21 Allergies Allergy/AdvReac Type Severity Reaction Status Date / Time niacin Allergy vertigo Verified 08/26/21 15:56 nitroglycerin Allergy passed out Verified 08/26/21 15:56 Penicillins Allergy Unknown Verified 08/26/21 15:56 Childhood erythromycin base AdvReac Nausea & Verified 08/26/21 15:56 [Erythromycin Base] Vomiting & Diarrhea isosorbide mononitrate AdvReac dropped b/p Verified 08/26/21 15:56 [From Imdur] Review of Systems ROS Statement: Those systems with pertinent positive or pertinent negative responses have been documented in the HPI. ROS Other: All systems not noted in ROS Statement are negative. Past Medical History Past Medical History: Coronary Artery Disease (CAD), Cancer, Hyperlipidemia, Hypertension, Osteoarthritis (OA), Prostate Disorder Additional Past Medical History / Comment(s): Seasonal allergies, CARPAL TUNNEL BILATERAL HANDS, IBS, anemia, sinus allergies/headache., COLON CANCER History of Any Multi-Drug Resistant Organisms: None Reported Past Surgical History: Coronary Bypass/CABG, Heart Catheterization Additional Past Surgical History / Comment(s): 09/03/13-CABG X5. COLONSCOPY Past Anesthesia/Blood Transfusion Reactions: Family History of Problems w/ An esthesia, Postoperative Nausea & Vomiting (PONV) Additional Past Anesthesia/Blood Transfusion Reaction / Comment(s): Family-PONV. Past Psychological History: No Psychological Hx Reported Smoking Status: Never smoker Past Alcohol Use History: Rare Past Drug Use History: None Reported - Past Family History Father Family Medical History: Cancer Mother Family Medical History: Cancer, CVA/TIA Sister(s) Family Medical History: Cancer General Exam Limitations: no limitations Course Vital Signs 08/26/21 08/26/21 14:23 21:20 Temperature 98 F Pulse Rate 96 80 Respiratory 16 18 Rate Blood Pressure 142/81 130/78 O2 Sat by Pulse 98 100 Oximetry Medical Decision Making - Medical Decision Making Upon arrival patient is placed in room 33. A thorough history and physical exam was performed. He is offered pain medications however refuses. IV is established and laboratory studies are conducted. Dr. Rao does want a CT and a KUB. These studies are performed and reviewed. Laboratory studies within normal limits. CT of the abdomen and pelvis demonstrates partial small bowel obstruction. Distal SMV and portal venous nonocclusive thrombus. Dr. Rao does evaluate the patient in the emergency department. He will be admitted on a heparin drip with vascular consult. Patient remained in stable condition and was transferred to the floor - Lab Data Result diagrams: 08/26/21 16:07 08/26/21 16:07 Lab Results 08/26/21 08/26/21 08/26/21 Range/Units 16:07 16:07 16:07 WBC 7.0 (3.8-10.6) k/uL RBC 5.01 (4.30-5.90) m/uL Hgb 12.5 L (13.0-17.5) gm/dL Hct 41.7 (39.0-53.0) % MCV 83.2 (80.0-100.0) fL MCH 25.0 (25.0-35.0) pg MCHC 30.1 L (31.0-37.0) g/dL RDW 17.1 H (11.5-15.5) % Plt Count 312 (150-450) k/uL MPV 6.7 Neutrophils % 75 % Lymphocytes % 13 % Monocytes % 9 % Eosinophils % 1 % Basophils % 1 % Neutrophils # 5.2 (1.3-7.7) k/uL Lymphocytes # 0.9 L (1.0-4.8) k/uL Monocytes # 0.6 (0-1.0) k/uL Eosinophils # 0.1 (0-0.7) k/uL Basophils # 0.0 (0-0.2) k/uL Hypochromasia Slight Anisocytosis Slight Microcytosis Slight APTT (22.0-30.0) sec Sodium 134 L (137-145) mmol/L Potassium 4.1 (3.5-5.1) mmol/L Chloride 98 (98-107) mmol/L Carbon Dioxide 29 (22-30) mmol/L Anion Gap 7 mmol/L BUN 8 L (9-20) mg/dL Creatinine 0.82 (0.66-1.25) mg/dL Est GFR (CKD-EPI)AfAm >90 (>60 ml/min/1.73 sqM) Est GFR (CKD-EPI)NonAf >90 (>60 ml/min/1.73 sqM) Glucose 93 (74-99) mg/dL Plasma Lactic Acid Javid (0.7-2.0) mmol/L Calcium 8.7 (8.4-10.2) mg/dL Total Bilirubin 0.4 (0.2-1.3) mg/dL AST 64 H (17-59) U/L ALT 83 H (4-49) U/L Alkaline Phosphatase 219 H (38-126) U/L Total Protein 6.5 (6.3-8.2) g/dL Albumin 3.6 (3.5-5.0) g/dL Lipase 87 (23-300) U/L Urine Color Yellow Urine Appearance Clear (Clear) Urine pH 6.5 (5.0-8.0) Ur Specific [place] 1.015 (1.001-1.035) Urine Protein Negative (Negative) Urine Glucose (UA) Negative (Negative) Urine Ketones 1+ H (Negative) Urine Blood Negative (Negative) Urine Nitrite Negative (Negative) Urine Bilirubin Negative (Negative) Urine Urobilinogen <2.0 (<2.0) mg/dL Ur Leukocyte Esterase Negative (Negative) 08/26/21 08/26/21 Range/Units 16:07 16:07 WBC (3.8-10.6) k/uL RBC (4.30-5.90) m/uL Hgb (13.0-17.5) gm/dL Hct (39.0-53.0) % MCV (80.0-100.0) fL MCH (25.0-35.0) pg MCHC (31.0-37.0) g/dL RDW (11.5-15.5) % Plt Count (150-450) k/uL MPV Neutrophils % % Lymphocytes % % Monocytes % % Eosinophils % % Basophils % % Neutrophils # (1.3-7.7) k/uL Lymphocytes # (1.0-4.8) k/uL Monocytes # (0-1.0) k/uL Eosinophils # (0-0.7) k/uL Basophils # (0-0.2) k/uL Hypochromasia Anisocytosis Microcytosis APTT 30.4 H (22.0-30.0) sec Sodium (137-145) mmol/L Potassium (3.5-5.1) mmol/L Chloride (98-107) mmol/L Carbon Dioxide (22-30) mmol/L Anion Gap mmol/L BUN (9-20) mg/dL Creatinine (0.66-1.25) mg/dL Est GFR (CKD-EPI)AfAm (>60 ml/min/1.73 sqM) Est GFR (CKD-EPI)NonAf (>60 ml/min/1.73 sqM) Glucose (74-99) mg/dL Plasma Lactic Acid Javid 1.2 (0.7-2.0) mmol/L Calcium (8.4-10.2) mg/dL Total Bilirubin (0.2-1.3) mg/dL AST (17-59) U/L ALT (4-49) U/L Alkaline Phosphatase (38-126) U/L Total Protein (6.3-8.2) g/dL Albumin (3.5-5.0) g/dL Lipase (23-300) U/L Urine Color Urine Appearance (Clear) Urine pH (5.0-8.0) Ur Specific [place] (1.001-1.035) Urine Protein (Negative) Urine Glucose (UA) (Negative) Urine Ketones (Negative) Urine Blood (Negative) Urine Nitrite (Negative) Urine Bilirubin (Negative) Urine Urobilinogen (<2.0) mg/dL Ur Leukocyte Esterase (Negative) Disposition Clinical Impression: Cecal cancer, Portal vein thrombosis, Superior mesenteric vein thrombosis, Small bowel obstruction Disposition: ADMITTED IP TO THIS [facility] Condition: Serious Is patient prescribed a controlled substance at d/c from ED?: No Time of Disposition: 18:03 Decision to Admit Reason: Admit from EC Decision Date: 08/26/21 Decision Time: 18:03
[2021-08-26 16:19] LABS: Anisocytosis Slight; Basophils % (A) 1 %; Eosinophils # (A) 0.1 k/uL (0-0.7); Eosinophils % (A) 1 %; HCT 41.7 % (39.0-53.0); HGB 12.5 gm/dL (13.0-17.5); Hypochromasia Slight; Lymphocytes # (A) 0.9 k/uL (1.0-4.8); Lymphocytes % (A) 13 %; MCHC 30.1 g/dL (31.0-37.0); MCV 83.2 fL (80.0-100.0); Mean Platelet Volume 6.7; Microcytosis Slight; Monocytes # (A) 0.6 k/uL (0-1.0); Monocytes % (A) 9 %; Neutrophils # (A) 5.2 k/uL (1.3-7.7); Neutrophils % (A) 75 %; Platelet Count 312 k/uL (150-450); RBC 5.01 m/uL (4.30-5.90); RDW 17.1 % (11.5-15.5)
[2021-08-26 16:26] LABS: ALT 83 U/L (4-49); AST 64 U/L (17-59); African American GFR (CKD) >90 (>60 ml/min/1.73 sqM); Albumin 3.6 g/dL (3.5-5.0); Alkaline Phosphatase 219 U/L (38-126); Anion Gap 7 mmol/L; Blood Urea Nitrogen 8 mg/dL (9-20); Calcium 8.7 mg/dL (8.4-10.2); Carbon Dioxide 29 mmol/L (22-30); Chloride 98 mmol/L (98-107); Glucose 93 mg/dL (74-99); Lipase 87 U/L (23-300); Non-African American GFR(CKD) >90 (>60 ml/min/1.73 sqM); Potassium 4.1 mmol/L (3.5-5.1); Sodium 134 mmol/L (137-145); Total Bilirubin 0.4 mg/dL (0.2-1.3); Total Protein 6.5 g/dL (6.3-8.2)
--- NOTE | 2021-08-26 16:32 | XR ---
EXAMINATION TYPE: XR KUB DATE OF EXAM: 08/26/2021 COMPARISON: X-ray dated 09/13/2013 INDICATION: Abdominal pain, recent surgery TECHNIQUE: Upright view of the abdomen and pelvis. FINDINGS: No free air under the diaphragm. No multiple air-fluid levels or signs of acute high-grade small jeronimo l obstruction. Surgical sutures are seen in the right lower quadrant. Nonspecific gaseous distention of the colon. Sternotomy wire sutures. Degenerative changes of the lower thoracic spine. IMPRESSION: As above.
[2021-08-26 16:43] LABS: Appearance,Urine Clear (Clear); Bilirubin,Urine Negative (Negative); Blood,Urine Negative (Negative); Color,Urine Yellow; Glucose,Urine (UA) Negative (Negative); Ketones,Urine 1+ (Negative); Leukocyte Esterase,Urine Negative (Negative); Nitrite,Urine Negative (Negative); PH, Urine 6.5 (5.0-8.0); Protein,Urine Negative (Negative); Specific Gravity,Urine 1.015 (1.001-1.035); Urobilinogen,Urine <2.0 mg/dL (<2.0)
--- NOTE | 2021-08-26 17:52 | P.GSCN ---
History of Present Illness Consult date: 08/26/21 History of present illness: Patient seen and evaluated. Clinically stable. Labs reviewed. LFTs elevated and setting of known history of gallstones. CT of the abdomen and pelvis independently reviewed demonstrating numerous gallstones. No bowel obstruction. Findings consistent with ileus. Recommend low residue diet for ileus. Pathology report reviewed consistent with colon cancer with negative lymph nodes and negative margins. Will arrange for outpatient follow-up with oncology. Additionally, medications for ileus includes Reglan, simethicone Gastro's. P bartolo has history of gastric ulcers where omeprazole recommended to continue. Past Medical History Past Medical History: Coronary Artery Disease (CAD), Cancer, Hyperlipidemia, Hypertension, Osteoarthritis (OA), Prostate Disorder Additional Past Medical History / Comment(s): Seasonal allergies, CARPAL TUNNEL BILATERAL HANDS, IBS, anemia, sinus allergies/headache., COLON CANCER History of Any Multi-Drug Resistant Organisms: None Reported Past Surgical History: Coronary Bypass/CABG, Heart Catheterization Additional Past Surgical History / Comment(s): 09/03/13-CABG X5. COLONSCOPY Past Anesthesia/Blood Transfusion Reactions: Family History of Problems w/ Anesthesia, Postoperative Nausea & Vomiting (PONV) Additional Past Anesthesia/Blood Transfusion Reaction / Comm: Family-PONV. Past Psychological History: No Psychological Hx Reported Smoking Status: Never smoker Past Alcohol Use History: Rare Past Drug Use History: None Reported - Past Family History Father Family Medical History: Cancer Mother Family Medical History: Cancer, CVA/TIA Sister(s) Family Medical History: Cancer Medications and Allergies Home Medications Medication Instructions Recorded Confirmed Type Aspirin EC [Ecotrin Low Dose] 162 mg PO DAILY #60 tablet. 09/06/13 08/26/21 Rx Loratadine-Pseudoeph 5-120 mg 1 tab PO BID PRN 04/01/21 08/26/21 History [Claritin-D 12 Hour] Metoprolol Succinate (ER) [Toprol 50 mg PO DAILY 04/01/21 08/26/21 History XL] Rosuvastatin Calcium [Crestor] 10 mg PO HS 04/01/21 08/26/21 History Ubidecarenone [Co Q-10] 200 mg PO DAILY 08/17/21 08/26/21 History Acetaminophen Tab [Tylenol Tab] 1,000 mg PO Q6HR PRN #30 tablet 08/23/21 08/26/21 Rx Ibuprofen [Motrin] 600 mg PO Q8HR PRN #30 tab 08/23/21 08/26/21 Rx Simethicone [Gas-X] 125 mg PO AC-TID PRN #20 capsule 08/23/21 08/26/21 Rx Omeprazole [PriLOSEC] 40 mg PO DAILY #14 cap 08/24/21 08/26/21 Rx Allergies Allergy/AdvReac Type Severity Reaction Status Date / Time niacin Allergy vertigo Verified 08/26/21 15:56 nitroglycerin Allergy passed out Verified 08/26/21 15:56 Penicillins Allergy Unknown Verified 08/26/21 15:56 Childhood erythromycin base AdvReac Nausea & Verified 08/26/21 15:56 [Erythromycin Base] Vomiting & Diarrhea isosorbide mononitrate AdvReac dropped b/p Verified 08/26/21 15:56 [From Imdur] Surgical - Exam Vital Signs Temp Pulse Resp BP Pulse Ox 98 F 96 16 142/81 98 08/26/21 14:23 08/26/21 14:23 08/26/21 14:23 08/26/21 14:23 08/26/21 14:23 Results - Labs 08/26/21 16:07 08/26/21 16:07 Abnormal Lab Results - Last 24 Hours (Table) 08/26/21 08/26/21 08/26/21 Range/Units 16:07 16:07 16:07 Hgb 12.5 L (13.0-17.5) gm/dL MCHC 30.1 L (31.0-37.0) g/dL RDW 17.1 H (11.5-15.5) % Lymphocytes # 0.9 L (1.0-4.8) k/uL Sodium 134 L (137-145) mmol/L BUN 8 L (9-20) mg/dL AST 64 H (17-59) U/L ALT 83 H (4-49) U/L Alkaline Phosphatase 219 H (38-126) U/L Urine Ketones 1+ H (Negative) Diabetes panel 08/26/21 Range/Units 16:07 Sodium 134 L (137-145) mmol/L Potassium 4.1 (3.5-5.1) mmol/L Chloride 98 (98-107) mmol/L Carbon Dioxide 29 (22-30) mmol/L BUN 8 L (9-20) mg/dL Creatinine 0.82 (0.66-1.25) mg/dL Glucose 93 (74-99) mg/dL Calcium 8.7 (8.4-10.2) mg/dL AST 64 H (17-59) U/L ALT 83 H (4-49) U/L Alkaline Phosphatase 219 H (38-126) U/L Total Protein 6.5 (6.3-8.2) g/dL Albumin 3.6 (3.5-5.0) g/dL Calcium panel 08/26/21 Range/Units 16:07 Calcium 8.7 (8.4-10.2) mg/dL Albumin 3.6 (3.5-5.0) g/dL Pituitary panel 08/26/21 Range/Units 16:07 Sodium 134 L (137-145) mmol/L Potassium 4.1 (3.5-5.1) mmol/L Chloride 98 (98-107) mmol/L Carbon Dioxide 29 (22-30) mmol/L BUN 8 L (9-20) mg/dL Creatinine 0.82 (0.66-1.25) mg/dL Glucose 93 (74-99) mg/dL Calcium 8.7 (8.4-10.2) mg/dL Adrenal panel 08/26/21 Range/Units 16:07 Sodium 134 L (137-145) mmol/L Potassium 4.1 (3.5-5.1) mmol/L Chloride 98 (98-107) mmol/L Carbon Dioxide 29 (22-30) mmol/L BUN 8 L (9-20) mg/dL Creatinine 0.82 (0.66-1.25) mg/dL Glucose 93 (74-99) mg/dL Calcium 8.7 (8.4-10.2) mg/dL Total Bilirubin 0.4 (0.2-1.3) mg/dL AST 64 H (17-59) U/L ALT 83 H (4-49) U/L Alkaline Phosphatase 219 H (38-126) U/L Total Protein 6.5 (6.3-8.2) g/dL Albumin 3.6 (3.5-5.0) g/dL
[2021-08-26] MEDS ORDERED: DICYCLOMINE 10 MG CAP PO STA (17:54)
[2021-08-26] MEDS ORDERED: METOCLOPRAMIDE 5 MG/ML 2 ML VIAL IVP STA (17:54)
--- NOTE | 2021-08-26 17:55 | CT ---
EXAMINATION TYPE: CT abdomen pelvis w con DATE OF EXAM: 08/26/2021 COMPARISON: 06/09/2021 HISTORY: abd pain after colon resection CT DLP: 1084.7 mGycm, Automated Exposure Control for Dose Reduction was Utilized. CONTRAST: CT scan of the abdomen and pelvis is performed with oral and with IV Contrast, patient inje cted with 100 mL of Isovue 300. FINDINGS: LUNG BASES: No acute findings. Coronary calcifications noted. LIVER/GB: No acute finding. Intrahepatic and extrahepatic biliary tree is unremarkable. Cholelithia sis however, is noted, and occupies approximately one half of the gallbladder lumen. PANCREAS: No significant abnormality is seen. SPLEEN: No significant abnormality is seen. ADRENALS: No significant abnormality is seen. KIDNEYS: No significant abnormality is seen. BOWEL AND PERITONEAL CAVITY: There is small bowel dilation up to 4.2 cm caliber, top normal caliber 3 cm. Supporting mesentery, celiac axis, SMA, and MARIEL are unremarkable. There is distal small bowel mu ral thickening noted however, just proximal to the anastomosis in the right lower quadrant. There is no pneumatosis or pneumoperitoneum. No peritoneal fluid. VASCULATURE: There are filling defects within the portal venous system and distal superior mesenteric vein, on both data sets, consistent with nonocclusive SMV and portal venous thrombus. PROSTATE/SEMINAL VESICLES: No gross abnormality seen. LYMPH NODES: No greater than 1cm abdominal or pelvic lymph nodes are appreciated. OSSEOUS STRUCTURES: No significant abnormality is seen. IMPRESSION: 1. PARTIAL SMALL BOWEL OBSTRUCTION. 2. DISTAL SMV AND PORTAL VENOUS NONOCCLUSIVE THROMBUS. Ordering physician was called and notified of these abnormal findings.
[2021-08-26] MEDS ORDERED: HEPARIN SODIUM 1,000 UN/ML (10ML VL) IV ONE (18:01)
[2021-08-26] MEDS ORDERED: HEPARIN SODIUM 1,000 UN/ML (10ML VL) IV PRN (18:01)
[2021-08-26] MEDS ORDERED: NALOXONE 0.4 MG/ML 1 ML VIAL IV PRN (18:03)
--- NOTE | 2021-08-26 18:17 | P.PN ---
Progress Note - Text Progress Note Date: 08/26/21 Notified by ER provider CT report finally available demonstrating new questionable thrombus of the portal vein and SMV. CT report also suggest bowel obstruction however patient has moderate flatus within the transverse colon and he is passing flatus. Clinical picture more consistent with ileus Agree with admission with heparin drip. Consultation to vascular and oncology for new diagnosis of colon cancer as well. Care plan discussed and described to patient and family who agree with care plan.
[2021-08-26] MEDS ORDERED: ACETAMINOPHEN IV (For NPO) 1,000 MG in EMPTY BAG 1 BAG IVPB ONE (18:18)
[2021-08-26] MEDS ORDERED: ACETAMINOPHEN TAB 325 MG TAB PO PRN (18:18)
[2021-08-26] MEDS ORDERED: HYDROmorphone 1 MG/ML 1 ML SYRINGE IVP PRN (18:18)
[2021-08-26] MEDS ORDERED: LORATADINE-PSEUDOEPH 5-120 MG 1 EACH TAB.ER.12H PO PRN (18:40)
[2021-08-26] MEDS ORDERED: SIMETHICONE 80 MG CHEWABLE PO PRN (18:40)
[2021-08-26] MEDS: HEPARIN SOD,PORK IN 0.45% NACL 25,000 UNIT in 0.45% NACL 1 250ML.BAG IV SCH (20:37)
[2021-08-26] MEDS ORDERED: ATORVASTATIN 20 MG TAB PO SCH (21:00)
[2021-08-27] MEDS: METOCLOPRAMIDE 5 MG/ML 2 ML VIAL IVP SCH ×3 (01:12→13:43)
[2021-08-27 03:03] LABS: Anisocytosis Slight; Basophils % (A) 0 %; Eosinophils # (A) 0.1 k/uL (0-0.7); Eosinophils % (A) 1 %; HCT 40.5 % (39.0-53.0); HGB 12.2 gm/dL (13.0-17.5); Hypochromasia Slight; Lymphocytes # (A) 1.4 k/uL (1.0-4.8); Lymphocytes % (A) 18 %; MCH 25.3 pg (25.0-35.0); MCHC 30.2 g/dL (31.0-37.0); MCV 83.7 fL (80.0-100.0); Microcytosis Slight; Monocytes # (A) 0.7 k/uL (0-1.0); Monocytes % (A) 10 %; Neutrophils # (A) 5.2 k/uL (1.3-7.7); Neutrophils % (A) 68 %; Platelet Count 281 k/uL (150-450); RBC 4.84 m/uL (4.30-5.90); WBC 7.7 k/uL (3.8-10.6)
--- NOTE | 2021-08-27 08:13 | US ---
EXAMINATION TYPE: US gallbladder DATE OF EXAM: 08/27/2021 COMPARISON: NONE CLINICAL HISTORY: Elevated LFTs. known GB stones and PV thrombus EXAM MEASUREMENTS: Liver Length: 15.1 cm Gallbladder Wall: 0.5 cm CBD: not seen Right Kidney: 10.3 x 4.4 x 5.4 cm Pancreas: not seen due to bowel gas Liver: unable able to visualize left lobe, right portion appears wnl, was able to see thrombus withi n MPV just before RPV bif that was nonoccluding. Gallbladder: +JUANA sign, borderline wall thickening Evidence for sonographic Daniels's sign: no CBD: area obscured by bowel gas and shadowing stones Right Kidney: wnl IMPRESSION: 1. Thickened gallbladder wall. Large gallstones present. Correlate for cystitis. 2. Thrombus is identified during this exam.
[2021-08-27] MEDS ORDERED: PANTOPRAZOLE 40 MG/10 ML VIAL IV SCH (09:00)
[2021-08-27] MEDS ORDERED: ASPIRIN 81 MG PO SCH (09:00)
[2021-08-27] MEDS ORDERED: METOPROLOL SUCCINATE (ER) 50 MG TAB.ER.24H PO SCH (09:00)
[2021-08-27 09:46] VITALS: RESP 16; TEMP 98.5
[2021-08-27] MEDS ORDERED: RX INFO: IV CONTRAST WAS GIVEN 1 EACH MISC MISCELLANE PRN (10:33)
--- NOTE | 2021-08-27 10:40 | P.CONS ---
History of Present Illness - Reason for Consult Consult date: 08/27/21 New Colon Cancer Requesting physician: Tiff Roland - Chief Complaint Abdominal Pain - History of Present Illness Robert is a 56 year old male who is status post right hemicoloectomy with omentum on 08/23/21 for newly diagnosed colon cancer. Pathology was positive for a denocarcinoma, invasive. 0 of 19 lymph nodes. Yesterday increased LFTs and abdominal pain revealed possible bowel obtruction, cholelithiasis and non occlusive distal SMV and PVT thrombus's. He has been started on heparin drip. Because of new colon cancer diagnosis we have been asked to further evaluate Review of Systems All systems: negative Constitutional: Reports as per HPI Past Medical History Past Medical History: Coronary Artery Disease (CAD), Cancer, Hyperlipidemia, Hypertension, Osteoarthritis (OA), Prostate Disorder Additional Past Medical History / Comment(s): Seasonal allergies, CARPAL TUNNEL BILATERAL HANDS, IBS, anemia, sinus allergies/headache., COLON CANCER History of Any Multi-Drug Resistant Organisms: None Reported Past Surgical History: Coronary Bypass/CABG, Heart Catheterization Additional Past Surgical History / Comment(s): 09/03/13-CABG X5. COLONSCOPY Past Anesthesia/Blood Transfusion Reactions: Family History of Problems w/ Anesthesia, Postoperative Nausea & Vomiting (PONV) Additional Past Anesthesia/Blood Transfusion Reaction / Comm: Family-PONV. Past Psychological History: No Psychological Hx Reported Smoking Status: Never smoker Past Alcohol Use History: Rare Past Drug Use History: None Reported - Past Family History Father Family Medical History: Cancer Mother Family Medical History: Cancer, CVA/TIA Sister(s) Family Medical History: Cancer Medications and Allergies Home Medications Medication Instructions Recorded Confirmed Type Aspirin EC [Ecotrin Low Dose] 162 mg PO DAILY #60 tablet. 09/06/13 08/26/21 Rx Loratadine-Pseudoeph 5-120 mg 1 tab PO BID PRN 04/01/21 08/26/21 History [Claritin-D 12 Hour] Metoprolol Succinate (ER) [Toprol 50 mg PO DAILY 04/01/21 08/26/21 History XL] Rosuvastatin Calcium [Crestor] 10 mg PO HS 04/01/21 08/26/21 History Ubidecarenone [Co Q-10] 200 mg PO DAILY 08/17/21 08/26/21 History Acetaminophen Tab [Tylenol] 1,000 mg PO Q6HR PRN #30 tablet 08/23/21 08/26/21 Rx Simethicone [Gas-X] 125 mg PO AC-TID PRN #20 capsule 08/23/21 08/26/21 Rx Omeprazole [PriLOSEC] 40 mg PO DAILY #14 cap 08/24/21 08/26/21 Rx Apixaban [Eliquis Starter Pack 5 mg PO DIRECTED 30 Days #1 each 08/27/21 Rx (for VTE)] Allergies Allergy/AdvReac Type Severity Reaction Status Date / Time niacin Allergy vertigo Verified 08/26/21 15:56 nitroglycerin Allergy passed out Verified 08/26/21 15:56 Penicillins Allergy Unknown Verified 08/26/21 15:56 Childhood erythromycin base AdvReac Nausea & Verified 08/26/21 15:56 [Erythromycin Base] Vomiting & Diarrhea isosorbide mononitrate AdvReac dropped b/p Verified 08/26/21 15:56 [From Imdur] Physical Exam Vitals: Vital Signs Temp Pulse Pulse Resp BP BP Pulse Ox 08/27/21 08:00 98.5 F 91 16 124/86 96 08/27/21 06:17 99 18 138/91 100 08/26/21 21:20 80 18 130/78 100 08/26/21 14:23 98 F 96 16 142/81 98 - Constitutional General appearance: cooperative - EENT Eyes: EOMI ENT: NA/AT - Neck Neck: normal ROM - Respiratory Respiratory: bilateral: diminished (bases) - Cardiovascular Rhythm: regularly irregular - Gastrointestinal Evidence of surgery tender - Integumentary Integumentary: pale - Neurologic Neurologic: CNII-XII intact - Musculoskeletal Musculoskeletal: generalized weakness Results CBC & Chem 7: 08/27/21 13:48 08/27/21 13:48 Labs: Abnormal Lab Results - Last 24 Hours (Table) 08/26/21 08/26/21 08/26/21 Range/Units 16:07 16:07 16:07 Hgb 12.5 L (13.0-17.5) gm/dL MCHC 30.1 L (31.0-37.0) g/dL RDW 17.1 H (11.5-15.5) % Lymphocytes # 0.9 L (1.0-4.8) k/uL APTT (22.0-30.0) sec Sodium 134 L (137-145) mmol/L BUN 8 L (9-20) mg/dL AST 64 H (17-59) U/L ALT 83 H (4-49) U/L Alkaline Phosphatase 219 H (38-126) U/L Urine Ketones 1+ H (Negative) 08/26/21 08/27/21 08/27/21 Range/Units 16:07 02:02 02:02 Hgb 12.2 L (13.0-17.5) gm/dL MCHC 30.2 L (31.0-37.0) g/dL RDW 17.0 H (11.5-15.5) % Lymphocytes # (1.0-4.8) k/uL APTT 30.4 H 57.1 H (22.0-30.0) sec Sodium (137-145) mmol/L BUN (9-20) mg/dL AST (17-59) U/L ALT (4-49) U/L Alkaline Phosphatase (38-126) U/L Urine Ketones (Negative) CT scan - abdomen: report reviewed CT scan - pelvis: report reviewed Assessment and Plan (1) Cecal cancer Narrative/Plan: Pathollogy without evidence of metastatic disease to any lymph nodes, therefore may not require adjuvant chemotherapy Will check CT chest to confirm discussed in detail with patient. He has stage II disease, with inadequate lymph node sampling. I discussed the Oncotype: Testing to check for need for adjuvant chemotherapy. He states that he is very reluctant to do any chemotherapy, but after detailed discussion agreed to have the Oncotype: Testing prior to making any final decision. The same will be ordered, and the patient will follow up as an outpatient Status: Acute Code(s): C18.0 - MALIGNANT NEOPLASM OF CECUM SNOMED Code(s): 656462892 (2) Portal vein thrombosis Narrative/Plan: Heparin drip Thrombus post surgical intervention Doppler and CT chest Pending Agree with heparin Status: Acute Code(s): I81 - PORTAL VEIN THROMBOSIS SNOMED Code(s): 44725573 (3) Small bowel obstruction Narrative/Plan: Surgeryy following Status: Acute Code(s): K56.609 - UNSP INTESTNL OBST, UNSP TO PARTIAL VERSUS COMPLETE OBST SNOMED Code(s): 041309186 (4) Superior mesenteric vein thrombosis Narrative/Plan: DC on Eliquis 10mg po BID then 5mg BID, discussed with Surgery team Status: Acute Code(s): K55.069 - ACUTE INFARCTION OF INTESTINE, PART AND EXTENT UNSPECIFIED SNOMED Code(s): 882744584 (5) S/P CABG (coronary artery bypass graft) Status: Acute Code(s): Z95.1 - PRESENCE OF AORTOCORONARY BYPASS GRAFT SNOMED Code(s): 389445969 (6) LFTs abnormal Narrative/Plan: Reactive versus cholelithiasis Further eval pending Surgery following No mention of metastatic disease to liver on CT. Status: Acute Code(s): R79.89 - OTHER SPECIFIED ABNORMAL FINDINGS OF BLOOD CHEMISTRY SNOMED Code(s): 090329938 Plan: Dr. Banks: I have completed the full history and physical and developed the above impression and plan, agree with dictation, dictated as a ascribe
--- NOTE | 2021-08-27 11:04 | P.GSCN ---
History of Present Illness Consult date: 08/27/21 Reason for Consult: Superior mesenteric thrombus, portal vein thrombus Requesting physician: Ashlie Arguello History of present illness: This a pleasant 56-year-old male who presented to the emergency department yesterday afternoon with complaints of abdominal bloating and distention. Patient recently underwent laparoscopic right hemicolectomy and partial omentectomy on 08/20/[address] Roland biopsy came back positive for colon cancer. During his evaluation in the emergency department he had a CT of the abdomen and pelvisthat reported a partial small bowel obstruction and a distal SMV and portal venous nonocclusive thrombus. Vascular surgery was consulted for the above. Patient currently denies any abdominal pain. He states he's been passing gas and a very small bowel movement. He denies any nausea or vomiting. He is currently on a heparin drip at this time. Review of Systems A 14 point review systems was completed all pertinent positives and negatives as stated in the HPI. Past Medical History Past Medical History: Coronary Artery Disease (CAD), Cancer, Hyperlipidemia, Hypertension, Osteoarthritis (OA), Prostate Disorder Additional Past Medical History / Comment(s): Seasonal allergies, CARPAL TUNNEL BILATERAL HANDS, IBS, anemia, sinus allergies/headache., COLON CANCER History of Any Multi-Drug Resistant Organisms: None Reported Past Surgical History: Coronary Bypass/CABG, Heart Catheterization Additional Past Surgical History / Comment(s): 09/03/13-CABG X5. COLONSCOPY Past Anesthesia/Blood Transfusion Reactions: Family History of Problems w/ Anesthesia, Postoperative Nausea & Vomiting (PONV) Additional Past Anesthesia/Blood Transfusion Reaction / Comm: Family-PONV. Past Psychological History: No Psychological Hx Reported Smoking Status: Never smoker Past Alcohol Use History: Rare Past Drug Use History: None Reported - Past Family History Father Family Medical History: Cancer Mother Family Medical History: Cancer, CVA/TIA Sister(s) Family Medical History: Cancer Medications and Allergies Home Medications Medication Instructions Recorded Confirmed Type Aspirin EC [Ecotrin Low Dose] 162 mg PO DAILY #60 tablet. 09/06/13 08/26/21 Rx Loratadine-Pseudoeph 5-120 mg 1 tab PO BID PRN 04/01/21 08/26/21 History [Claritin-D 12 Hour] Metoprolol Succinate (ER) [Toprol 50 mg PO DAILY 04/01/21 08/26/21 History XL] Rosuvastatin Calcium [Crestor] 10 mg PO HS 04/01/21 08/26/21 History Ubidecarenone [Co Q-10] 200 mg PO DAILY 08/17/21 08/26/21 History Acetaminophen Tab [Tylenol Tab] 1,000 mg PO Q6HR PRN #30 tablet 08/23/21 08/26/21 Rx Ibuprofen [Motrin] 600 mg PO Q8HR PRN #30 tab 08/23/21 08/26/21 Rx Simethicone [Gas-X] 125 mg PO AC-TID PRN #20 capsule 08/23/21 08/26/21 Rx Omeprazole [PriLOSEC] 40 mg PO DAILY #14 cap 08/24/21 08/26/21 Rx Allergies Allergy/AdvReac Type Severity Reaction Status Date / Time niacin Allergy vertigo Verified 08/26/21 15:56 nitroglycerin Allergy passed out Verified 08/26/21 15:56 Penicillins Allergy Unknown Verified 08/26/21 15:56 Childhood erythromycin base AdvReac Nausea & Verified 08/26/21 15:56 [Erythromycin Base] Vomiting & Diarrhea isosorbide mononitrate AdvReac dropped b/p Verified 08/26/21 15:56 [From Imdur] Surgical - Exam Vital Signs Temp Pulse Resp BP Pulse Ox 98 F 96 16 142/81 98 08/26/21 14:23 08/26/21 14:23 08/26/21 14:23 08/26/21 14:23 08/26/21 14:23 General appearance: The patient is alert, oriented, appears in no acute distress. HET: Head is normocephalic and atraumatic. Pupils are equal and reactive. Neck: Supple without lymphadenopathy. Trachea midline. Heart: S1 S2. Regular rate and rhythm. Lungs: Clear to auscultation bilaterally. Abdomen: Soft, nontender, positive bowel sounds, nondistended. Surgical incisions well approximated. Extremities: Normal skin color and turgor. No cyanosis, rash, ulceration, clubbing, or edema. Radial and pedal pulses are 2/4 bilaterally. Neurological: No focal deficits. Strength and sensation are grossly intact. Results - Labs 08/27/21 02:02 08/26/21 16:07 Abnormal Lab Results - Last 24 Hours (Table) 08/26/21 08/26/21 08/26/21 Range/Units 16:07 16:07 16:07 Hgb 12.5 L (13.0-17.5) gm/dL MCHC 30.1 L (31.0-37.0) g/dL RDW 17.1 H (11.5-15.5) % Lymphocytes # 0.9 L (1.0-4.8) k/uL APTT (22.0-30.0) sec Sodium 134 L (137-145) mmol/L BUN 8 L (9-20) mg/dL AST 64 H (17-59) U/L ALT 83 H (4-49) U/L Alkaline Phosphatase 219 H (38-126) U/L Urine Ketones 1+ H (Negative) 08/26/21 08/27/21 08/27/21 Range/Units 16:07 02:02 02:02 Hgb 12.2 L (13.0-17.5) gm/dL MCHC 30.2 L (31.0-37.0) g/dL RDW 17.0 H (11.5-15.5) % Lymphocytes # (1.0-4.8) k/uL APTT 30.4 H 57.1 H (22.0-30.0) sec Sodium (137-145) mmol/L BUN (9-20) mg/dL AST (17-59) U/L ALT (4-49) U/L Alkaline Phosphatase (38-126) U/L Urine Ketones (Negative) Diabetes panel 08/26/21 Range/Units 16:07 Sodium 134 L (137-145) mmol/L Potassium 4.1 (3.5-5.1) mmol/L Chloride 98 (98-107) mmol/L Carbon Dioxide 29 (22-30) mmol/L BUN 8 L (9-20) mg/dL Creatinine 0.82 (0.66-1.25) mg/dL Glucose 93 (74-99) mg/dL Calcium 8.7 (8.4-10.2) mg/dL AST 64 H (17-59) U/L ALT 83 H (4-49) U/L Alkaline Phosphatase 219 H (38-126) U/L Total Protein 6.5 (6.3-8.2) g/dL Albumin 3.6 (3.5-5.0) g/dL Calcium panel 08/26/21 Range/Units 16:07 Calcium 8.7 (8.4-10.2) mg/dL Albumin 3.6 (3.5-5.0) g/dL Pituitary panel 08/26/21 Range/Units 16:07 Sodium 134 L (137-145) mmol/L Potassium 4.1 (3.5-5.1) mmol/L Chloride 98 (98-107) mmol/L Carbon Dioxide 29 (22-30) mmol/L BUN 8 L (9-20) mg/dL Creatinine 0.82 (0.66-1.25) mg/dL Glucose 93 (74-99) mg/dL Calcium 8.7 (8.4-10.2) mg/dL Adrenal panel 08/26/21 Range/Units 16:07 Sodium 134 L (137-145) mmol/L Potassium 4.1 (3.5-5.1) mmol/L Chloride 98 (98-107) mmol/L Carbon Dioxide 29 (22-30) mmol/L BUN 8 L (9-20) mg/dL Creatinine 0.82 (0.66-1.25) mg/dL Glucose 93 (74-99) mg/dL Calcium 8.7 (8.4-10.2) mg/dL Total Bilirubin 0.4 (0.2-1.3) mg/dL AST 64 H (17-59) U/L ALT 83 H (4-49) U/L Alkaline Phosphatase 219 H (38-126) U/L Total Protein 6.5 (6.3-8.2) g/dL Albumin 3.6 (3.5-5.0) g/dL - Imaging Comments: CT of the abdomen and pelvis reported a partial small bowel obstruction and a distal SMV and portal venous nonocclusive thrombus. Abdominal x-ray: report reviewed Assessment and Plan Assessment: 1. Superior mesenteric thrombus and portal vein nonocclusive thrombus 2. Small bowel obstruction 3. Recent diagnosis of colon cancer status post right hemicolectomy and partial omentectomy on 08/20/2021 Plan: 1. Continue symptomatic and supportive care 2. Appreciate recommendations from hematology 3. Continue heparin drip for now 4. Transition to oral anticoagulation per recommendations of oncology 5. No indication for any vascular surgical intervention Thank you for this consultation, we'll continue to follow. The impression and plan of care has been dictated as directed. Dr. Kim I performed a history and examination of this patient, discussed the same with the dictator. I agree with the dictator's note ,documented as a scribe. Any additional findings or plans will be noted.
[2021-08-27] MEDS: HEPARIN SOD,PORK IN 0.45% NACL 25,000 UNIT in 0.45% NACL 1 250ML.BAG IV SCH (13:44)
[2021-08-27 14:37] VITALS: BP 118/76; PULSE 84
[2021-08-27 14:39] LABS: ALT 78 U/L (4-49); AST 51 U/L (17-59); African American GFR (CKD) >90 (>60 ml/min/1.73 sqM); Albumin 3.7 g/dL (3.5-5.0); Albumin/Globulin Ratio 1.2; Alkaline Phosphatase 171 U/L (38-126); Anion Gap 7 mmol/L; Blood Urea Nitrogen 11 mg/dL (9-20); Calcium 8.7 mg/dL (8.4-10.2); Carbon Dioxide 27 mmol/L (22-30); Chloride 100 mmol/L (98-107); Glucose 134 mg/dL (74-99); Lipase 217 U/L (23-300); Magnesium 1.9 mg/dL (1.6-2.3); Non-African American GFR(CKD) >90 (>60 ml/min/1.73 sqM); Sodium 134 mmol/L (137-145); Total Bilirubin 0.3 mg/dL (0.2-1.3); Total Protein 6.7 g/dL (6.3-8.2)
[2021-08-27 14:41] LABS: Anisocytosis Slight; Basophils # (A) 0.1 k/uL (0-0.2); Basophils % (A) 2 %; Eosinophils % (A) 1 %; HCT 42.3 % (39.0-53.0); HGB 12.6 gm/dL (13.0-17.5); Hypochromasia Moderate; Lymphocytes # (A) 0.9 k/uL (1.0-4.8); Lymphocytes % (A) 17 %; MCH 24.9 pg (25.0-35.0); MCHC 29.8 g/dL (31.0-37.0); MCV 83.6 fL (80.0-100.0); Mean Platelet Volume 7.2; Microcytosis Slight; Monocytes # (A) 0.5 k/uL (0-1.0); Monocytes % (A) 10 %; Neutrophils % (A) 70 %; Platelet Count 337 k/uL (150-450); RBC 5.06 m/uL (4.30-5.90); RDW 17.1 % (11.5-15.5); WBC 5.7 k/uL (3.8-10.6)
[2021-08-27] MEDS ORDERED: APIXABAN 5 MG TAB PO SCH ×2 (15:00→21:00)
--- NOTE | 2021-08-27 15:03 | P.DS ---
Providers Date of admission: 08/26/21 18:08 Expected date of discharge: 08/27/21 Attending physician: Tiff Roland Consults: 08/26/21 18:03 Consult Physician Urgent Consulting Provider: Jose Dc Consult Reason/Comments: smv thrombus, portal venous thrombus Do you want consulting provider notified?: Yes 08/26/21 18:13 Consult Physician Urgent Consulting Provider: David Jolley Consult Reason/Comments: new dx colon cancer Do you want consulting provider notified?: Yes Primary care physician: Farhan Gray Hospital Course: Discharge diagnosis 1. Abdominal pain 2. 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 Ileus 4. Colon cancer status post right hemicolectomy and partial omentectomy on 08/20/2021 Hospital course This is a 56-year-old male who presented to the hospital with complaints of abdominal bloating and distention. He had recently undergone a right hemicolectomy and partial omentectomy on 08/20/[address] Rao for his colon cancer. Computed tomography scan of the abdomen and pelvis demonstrated new question will thrombus of the portal vein and SMV. Computed tomography scan also suggested bowel obstruction. However patient is passing gas and speech is more consistent with an ileus. Patient was placed on IV heparin drip and consults were placed for vascular surgery and oncology service. No vascular intervention was required. And they recommended anticoagulation. Patient seen by oncology service and they have recommended Eliquis starter pack which is covered by patient's insurance. Patient will have a computed tomography scan of the chest completed per oncology service prior to discharge. Patient's abdominal bloating has resolved. He is tolerating diet. Patient is eager for discharge home. Patient is been cleared by consulting physicians for discharge. Follow-up recommended outpatient with oncology service. Patient is stable for discharge. Physician Roll Tube Setter note has been reviewed by physician. Signing provider agrees with the documented findings, assessment, and plan of care. Patient Condition at Discharge: Stable Plan - Discharge Summary New Discharge Prescriptions: New Apixaban [Eliquis Starter Pack (for VTE)] 5 mg PO DIRECTED 30 Days #1 each Continue Aspirin EC [Ecotrin Low Dose] 162 mg PO DAILY #60 tablet. Loratadine-Pseudoeph 5-120 mg [Claritin-D 12 Hour] 1 tab PO BID PRN PRN Reason: Allergy Symptoms Metoprolol Succinate (ER) [Toprol XL] 50 mg PO DAILY Simethicone [Gas-X] 125 mg PO AC-TID PRN #20 capsule PRN Reason: Pain Omeprazole [PriLOSEC] 40 mg PO DAILY #14 cap Rosuvastatin Calcium [Crestor] 10 mg PO HS Ubidecarenone [Co Q-10] 200 mg PO DAILY Acetaminophen Tab [Tylenol] 1,000 mg PO Q6HR PRN #30 tablet PRN Reason: Pain Discontinued Ibuprofen [Motrin] 600 mg PO Q8HR PRN #30 tab PRN Reason: Pain Discharge Medication List Aspirin EC [Ecotrin Low Dose] 162 mg PO DAILY #60 tablet. 09/06/13 [Rx] Loratadine-Pseudoeph 5-120 mg [Claritin-D 12 Hour] 1 tab PO BID PRN 04/01/21 [History] Metoprolol Succinate (ER) [Toprol XL] 50 mg PO DAILY 04/01/21 [History] Rosuvastatin Calcium [Crestor] 10 mg PO HS 04/01/21 [History] Ubidecarenone [Co Q-10] 200 mg PO DAILY 08/17/21 [History] Acetaminophen Tab [Tylenol] 1,000 mg PO Q6HR PRN #30 tablet 08/23/21 [Rx] Simethicone [Gas-X] 125 mg PO AC-TID PRN #20 capsule 08/23/21 [Rx] Omeprazole [PriLOSEC] 40 mg PO DAILY #14 cap 08/24/21 [Rx] Apixaban [Eliquis Starter Pack (for VTE)] 5 mg PO DIRECTED 30 Days #1 each 08/27/21 [Rx] Follow up Appointment(s)/Referral(s): Farhan Gray DO [Primary Care Provider] - 1-2 days Tiff Roland MD [STAFF PHYSICIAN] - 08/31/21 Reuben Roque MD [STAFF PHYSICIAN] - 1 Week Activity/Diet/Wound Care/Special Instructions: Eliquis copay is $0/month. Teleconference appointment with Dr. Roland on 08/31/2021 Discharge Disposition: HOME SELF-CARE
--- NOTE | 2021-08-27 16:37 | CT ---
EXAMINATION TYPE: CT angio chest DATE OF EXAM: 08/27/2021 COMPARISON: Correlation CT abdomen 08/26/2021 HISTORY: 56-year-old male shortness of breath, Staging/PE protocol TECHNIQUE: Contiguous axial scanning of the chest performed with IV Contrast, patient injected with 1 00 mL of Isovue 370. Coronal/sagittal MIP reconstructions performed. CT DLP: 320.3 mGycm Automated exposure control for dose reduction was used. FINDINGS: Heart normal size without pericardial effusion. No flattening of the interventricular septum or reflu x of contrast into the hepatic veins. Median sternotomy wires are present in the posterior mediastinu m. Borderline ectasia ascending aorta 3.5 cm. There is a focal 1.2 cm long enhancing blind-ending pouch from the anterior wall of the proximal arch, possible occluded graft vessel. Refer to axial image 54. Minimal atherosclerotic arch calcifications. Conventional arch vessel branching anatomy. Satisfactory opacification of the pulmonary arterial system with limitations due to the breathing mot ion artifact no large central or definite lobar branch pulmonary embolus. Segmental and more distal a rterial branches particularly in the left lower lobe are nondiagnostic due to the degree of breathing motion heterogeneity. Possible tiny segmental branch embolus left upper lobe, axial image 49. Villagran l image 81. Mild dependent atelectasis. Mild diffuse bronchial wall thickening. No thoracic lymphadenopathy. Strandy areas of atelectasis in the lower lungs. No consolidation or ple ural effusion. No suspicious pulmonary nodule or mass. Visualized upper abdomen shows fatty infiltration of the liver and extensive layering calculi and pro bable within the gallbladder. Bones: Anterior endplate spondylosis mid to lower thoracic spine. IMPRESSION: 1. MOTION ARTIFACT LIMITING THE EVALUATION. SEGMENTAL AND MORE DISTAL ARTERIAL BRANCHES ESPECIALLY IN THE LEFT LOWER LOBE ARE NONDIAGNOSTIC. THE EXAM IS EQUIVOCAL FOR A TINY SEGMENTAL BRANCH EMBOLUS OF THE LEFT UPPER LOBE, AXIAL IMAGE 49 AND CORONAL IMAGE 81. CLINICALLY CORRELATE. NO LARGE CENTRAL OR L OBAR BRANCH EMBOLUS IS SEEN. 2. POST-CABG CHANGES. THERE IS A 1.2 CM LONG, CONTRAST FILLING, BLIND-ENDING POUCH FROM THE ANTERIOR WALL OF THE PROXIMAL AORTIC ARCH, POSSIBLY OCCLUDED GRAFT VESSEL. CLINICALLY CORRELATE. 3. STRANDY ATELECTASIS IN THE LOWER LUNGS. NO EVIDENCE FOR METASTATIC DISEASE IN THE CHEST. 4. HEPATIC STEATOSIS AND EXTENSIVE CHOLELITHIASIS.
[2021-08-27 19:05] LABS: % Iron Saturation 5.17 (15.00-50.00); Ferritin 34.2 ng/mL (22.0-322.0)
== END 2021-08-27 16:51 | disposition home or self-care (01) | DRG 393 ==
LOC: EC 13:53 → 4SSUR 18:08
PROVIDERS: ADMIT Surgery Plastic and Reconstructive Surgery; ATTEND Surgery Plastic and Reconstructive Surgery
DX: K55.069 Acute infarction of intestine, part and extent unspecified (principal); I81 Portal vein thrombosis; C18.0 Malignant neoplasm of cecum; K56.7 Ileus, unspecified; J30.2 Other seasonal allergic rhinitis; K58.9 Irritable bowel syndrome, unspecified; G56.03 Carpal tunnel syndrome, bilateral upper limbs; D64.9 Anemia, unspecified; E78.5 Hyperlipidemia, unspecified; I10 Essential (primary) hypertension; I25.10 Atherosclerotic heart disease of native coronary artery without angina pectoris; K80.20 Calculus of gallbladder without cholecystitis without obstruction; Z79.82 Long term (current) use of aspirin; Z82.3 Family history of stroke; Z90.49 Acquired absence of other specified parts of digestive tract; Z95.1 Presence of aortocoronary bypass graft; Z88.8 Allergy status to other drugs, medicaments and biological substances; Z88.1 Allergy status to other antibiotic agents; Z88.0 Allergy status to penicillin; Z91.14 Patient's other noncompliance with medication regimen
CPT/HCPCS: 36415; 71275; 74018; 74177; 76705; 80053; 81003; 82306; 82378; 82607; 82728; 82746; 83540; 83550; 83605; 83690; 83735; 85025; 85730; 96374; 96375; 99285

== ENCOUNTER → 2021-11-29 | Outpatient (CLI) | payer BC ==
--- NOTE | 2021-11-29 12:53 | CT ---
EXAMINATION TYPE: CT abdomen pelvis w con CT DLP: 855.30 mGycm, Automated exposure control for dose reduction was used. DATE OF EXAM: 11/29/2021 12:36 PM COMPARISON: CT abdomen pelvis most recent from 08/26/2021. CLINICAL INDICATION:Male, 56 years old with history of C18.0 colon ca; cancer TECHNIQUE: Axial CT of the abdomen and pelvis. Sagittal and coronal reformats were created on a [employer] workstation. Contrast used:70 mL of Isovue 300 with IV Contrast, Oral contrast used: with Oral Contrast FINDINGS: LOWER CHEST: Partial visualization of sternotomy wires. The heart is mildly enlarged for size. There is coronary artery atherosclerosis present. ABDOMEN LIVER: Unremarkable GALLBLADDER AND BILE DUCTS: Filling defects within the gallbladder with high density sludge and likel y choleliths. PANCREAS: Unremarkable. SPLEEN: Unremarkable. ADRENAL GLANDS: Unremarkable. KIDNEYS AND URETERS: No evidence of hydronephrosis or renal calculus. The ureters are unremarkable. PELVIS BLADDER: Unremarkable REPRODUCTIVE: Prominent prostate gland measuring up to 4.6 cm in transverse dimension. ABDOMEN & PELVIS STOMACH AND BOWEL: No evidence of bowel obstruction. Postsurgical changes to the bowel predominantly the ascending colon without evidence for soft tissue to suggest recurrence. PERITONEUM: No evidence of pneumoperitoneum or free fluid. VASCULATURE: No evidence of aortic aneurysm. Prior nonocclusive thrombi are less well characterized d ue to phase of contrast. There is no obvious filling defect suggesting resolution of prior superior m esenteric vein and portal venous nonocclusive thrombi. No new thrombi are identified. MUSCULOSKELETAL: No acute osseous abnormalities, mild multilevel disc degeneration changes throughout the spine with facet joint arthropathy. LYMPH NODES: No gross evidence for lymphadenopathy. SOFT TISSUE/ABDOMINAL WALL: Fat filled umbilical hernia is present. IMPRESSION: 1. Slightly limited exam secondary to bolus timing, no evidence for superior mesenteric vein or akua l vein thrombus on today's exam suggesting resolution. No new filling defects identified. 2. Cholelithiasis with biliary sludge. 3. Postsurgical changes to the bowel without evidence of recurrence. No lymphadenopathy identified.
== END | disposition home or self-care (01) ==
LOC: RADCTMAIN 10:29
PROVIDERS: ATTEND Internal Medicine Hematology & Oncology
DX: C18.0 Malignant neoplasm of cecum (principal); K80.20 Calculus of gallbladder without cholecystitis without obstruction
CPT/HCPCS: 74177; Q9967

== ENCOUNTER → 2022-02-28 | Outpatient (CLI) | payer BC ==
--- NOTE | 2022-02-28 15:13 | CT ---
EXAMINATION TYPE: CT ChestAbdPelvis w con DATE OF EXAM: 02/28/2022 COMPARISON: 11/29/2021 HISTORY: Colon CA x4mo ago. CT DLP: 1116.8 mGycm CONTRAST: CT scan of the chest, abdomen and pelvis is performed with Oral Contrast and with IV Contrast, patien t injected with 70cc mL of Isovue 300. CT Chest: LUNGS: The lungs are clear and free of infiltrate or atelectasis. No pulmonary nodule or mass is det ected. No pleural effusion or CT evidence of interstitial lung disease. MEDIASTINUM: Thoracic aorta is of normal caliber. The heart is not enlarged. No evidence for media stinal mass or adenopathy. HILAR STRUCTURES: No evidence for mass. No hilar adenopathy is appreciated. OTHER: No significant abnormality. CONTRAST CT ABDOMEN AND PELVIS FINDINGS: LIVER/GB: No calcified gallstones. No space occupying hepatic lesion. Biliary tree is of normal ca liber. PANCREAS: No inflammation. No distinct mass. SPLEEN: No splenic enlargement. No lesion seen. ADRENALS: No nodule. No thickening. KIDNEYS/BLADDER: No hydronephrosis. No nephrolithiasis. No distinct renal mass. BOWEL: Right hemicolectomy with the no evidence for tumor recurrence. Small and large bowel are of no rmal caliber. Normal bowel caliber. No inflammation. GENITAL ORGANS: No gross abnormality. LYMPH NODES: No greater than 1cm abdominal or pelvic lymph nodes are appreciated. AORTA: No significant abnormality. OSSEOUS STRUCTURES: No significant abnormality is seen. OTHER: No significant additional abnormality is seen. IMPRESSION: 1. Right hemicolectomy with the no evidence for tumor recurrence. 2. No evidence for metastatic disease to the chest abdomen or pelvis.
== END | disposition home or self-care (01) ==
LOC: RADCTMAIN 12:52
PROVIDERS: ATTEND Internal Medicine Hematology & Oncology
DX: C18.0 Malignant neoplasm of cecum (principal); Z03.89 Encounter for observation for other suspected diseases and conditions ruled out
CPT/HCPCS: 71260; 74177; Q9967 ×2